=== PATIENT | female | born 1940 | race Caucasian/White ===

== ENCOUNTER → 2017-06-21 | Outpatient (CLI) | payer OTHER ==
[~2017-06-21] MED LIST: AMLODIPINE BESY10 MG PO; CELEXA10 MG PO; LISINOPRIL20 MG PO; MELOXICAM7.5 MG PO; MICROZIDE12.5 MG PO; PRAVACHOL20 MG PO; PREDNISONE 10 M10 MG PO; TRAMADOL 50 MG50 MG PO; XANAX 0.5 MG0.5 MG PO
== END ==
LOC: RAD 12:31
DX: R05 Cough (principal); M47.896 Other spondylosis, lumbar region; M54.89 Other dorsalgia

== ENCOUNTER 2017-07-22 14:50 | Inpatient (IN) | payer OTHER ==
[~2017-07-22] VITALS: Ht 152.4 cm; Wt 50.3 kg
--- NOTE | ~2017-07-22 | HC ---
[facility] [place] [address] CONSULTATION Name: KAVON ANTHONY Room #: 441-P ADM IN M.R.#: [id number] Admission: 07/22/17 Attend Phys: Nate Rodriguez MD Discharge: Date of : 38 Report #: [id number] THIS REPORT FOR: //name// CC: Nate Rodriguez DATE OF SERVICE: 07/29/2017 INFECTIOUS DISEASE CONSULTATION ATTENDING PHYSICIAN: Dr. Rodriguez. REASON FOR CONSULTATION: Fever. HISTORY OF PRESENT ILLNESS: The patient is a 76-year-old white woman admitted with abdominal pain, diagnosed to have gastric ulcerations secondary to nonsteroidal anti-inflammatory drugs. The patient has intermittent fevers. She has been on treatment with Cipro 250 b.i.d. for possible UTI. Despite this, she continues to run low grade fevers. All in all, she is feeling better compared to admission time, but she is bringing to my attention the fact that she is having loose stools 3-4 times daily, some abdominal discomfort, anorexia and unable to eat. PAST MEDICAL HISTORY: Cholecystectomy. Back surgery. Recent gastrointestinal bleeding secondary to peptic ulcer disease, chronic kidney disease. Previous kyphoplasty. Hiatal hernia. Schatzki's ring. DRUG ALLERGIES: CODEINE. MEDICATIONS: The patient is on treatment with Cipro 250 p.o. b.i.d., acetaminophen p.r.n., pantoprazole 40 mg p.o. daily, mirtazapine 50 mg at bedtime, alprazolam 0.25 mg q. 4 h p.r.n. SOCIAL HISTORY: See H and P. FAMILY HISTORY: See H and P. REVIEW OF SYSTEMS: As above and see H and P. PHYSICAL EXAMINATION: GENERAL: Chronically ill-appearing woman, not toxic looking. VITAL SIGNS: Temperature maximum 100.6 on July 28. Note is made, she was febrile with temperature 101.3 on July 26, 100.1 on July 23. Pulse 102, respirations 20, BP 138/56. HEENMT: Head, normocephalic, atraumatic. Pupils reactive. Mouth, missing teeth. Periodontal disease. Pharynx normal. NECK: Supple. No thyromegaly or lymphadenopathy. [facility] [address] [place] [address] CONSULTATION Name: KAVON ANTHONY Room #: 441-P ADM IN [facility].#: [id number] Admission: 07/22/17 Attend Phys: Nate Rodriguez MD Discharge: Date of : 38 Report #: [id number] LUNGS: Few basilar crackles. HEART: S1, S2. No gallop or murmur. BREASTS: Deferred. ABDOMEN: Soft, no masses or megaly, no abnormal tenderness. PELVIC AND RECTAL: Deferred. EXTREMITIES: No clubbing, cyanosis. NEUROLOGIC: Grossly within normal limits. LABORATORY DATA: Sodium 139, potassium 3.7, BUN 16, creatinine 2, glucose 104, albumin 1.7 g/dL. WBC 10,200, hemoglobin 9 g/dL. The patient was transfused with 1 unit of packed red cells, platelets 327,000. White blood cell count differential revealed 83% segmented neutrophils. Vitamin D level low at 13.2. Urinalysis revealed a microscopic hematuria as well as bacteriuria and squamous epithelial cells representing a contaminated sample. The urine culture revealed 30,000 colonies of "normal genital, urethral chase." Blood cultures negative. Stool negative for occult blood. RADIOLOGY EVALUATION: Chest x-ray reveal chronic lung disease changes -- COPD, blunting costophrenic angles, minimal pleural effusion, no pulmonary infiltrates. ASSESSMENT: 1. Fever, undetermined source. 2. Gastric ulcer ____ gastrointestinal bleeding. 3. Chronic kidney disease. 4. Periodontal disease. 5. Malnutrition. 6. Diarrhea, question antibiotic induced. SUGGESTIONS: Obtain CRP and sedimentation rate. Stool for Clostridium difficile toxin, discontinue Cipro. Carefully monitor laboratory parameters. Dr. Nate Rodriguez, thank you for requesting my suggestions. <ELECTRONICALLY SIGNED> By: Pancho Friedman MD 07/30/17 1010 1235 99 Pancho Friedman MD /nt
--- NOTE | ~2017-07-22 | HC ---
[facility] [place] [address] CONSULTATION Name: KAVON ANTHONY Room #: 441-P ADM IN M.R.#: [id number] Admission: 07/22/17 Attend Phys: Nate Rodriguez MD Discharge: Date of : 38 Report #: [id number] THIS REPORT FOR: //name// CC: Nate Rodriguez DATE OF SERVICE: 07/25/2017 HISTORY OF PRESENT ILLNESS: The patient is a 76-year-old female admitted with weight loss with her weight decreasing from 130 pounds down 107 pounds over the last 7 months or so. She was noted to have epigastric pain, acute renal failure and uncontrolled anxiety. She underwent an EGD, which showed evidence of multiple gastric ulcers. There is a history of long-term nonsteroidal usage. This was thought to contribute to her acute renal failure as well. She does have tremulousness and a tremor and was seen by Neurology and was thought to be most likely due to her systemic nutritional problems. Psychiatry saw her and she has been diagnosed with depression and has been placed on Remeron to help improve appetite. She has had anemia, hemoglobin down to 6.6 and has been closely monitored. Gastroenterology is involved. We are seeing her in rehabilitation medicine consultation. PAST MEDICAL HISTORY: Includes hypertension. There is a history of a remote stroke, depression, anxiety disorder, dyslipidemia and past history of chronic smoking. She is noted to have moderate to chronic anxiety and depression. She has been followed by the pain clinic for bilateral greater trochanteric bursa pain, myofascial pain, lumbar spondylosis. PAST SURGICAL HISTORY: Included lumbar laminectomy in 2007. MEDICATIONS: Please see the full medication listing. ALLERGIES: CODEINE. FAMILY HISTORY: Noncontributory. HABITS: See above. Past chronic smoker. SOCIAL HISTORY: Lives with son and czpgkxid-rc-yey house. There are 10-12 steps in. When she gets in, can stay on one level. She did not utilize adaptive aids or assistive devices before. Qdrosrkq-qs-xav works and son is out of town during the week, but home during weekends. The patient has been home by herself during the day. REVIEW OF SYSTEMS: Did not offer any current complaints of chest pain, shortness of breath or abdominal discomfort. She has some generalized malaise. She does have tremulousness that she complains of. No change as far as any extremity pain complaints. Obvious concern with her weight loss. [facility] [address] [place] [address] CONSULTATION Name: KAVON ANTHONY Room #: 441-P [facility] IN .R.#: [id number] Admission: 07/22/17 Attend Phys: Nate Rodriguez MD Discharge: Date of : 38 Report #: [id number] PHYSICAL EXAMINATION: GENERAL: A 76-year-old thin white female in no obvious distress. VITAL SIGNS: Last recorded temperature 100.7, pulse 98, respirations 18, blood pressure 141/51. NEUROLOGIC: She is alert. She does follow basic 1 step commands. She does appear to be anxious with her situation and her home situation as well as finances. EOMs appeared to be full. Facies are symmetric. She does have tremulousness of both upper extremities. I cannot detect any focal cogwheeling of the wrist or the elbows. However, I have grade her strength at a 4-/5. In her lower extremities, no focal calf swelling. Strength is grade 4-/5. Tone appeared to be intact. Transfers are min assist, getting on and off the toilet for occupational therapy. Sit to stand was contact guard and she did ambulate 10 feet contact guard with a front-wheeled walker. ASSESSMENT: A 76-year-old white female with the following problems: 1. Medical complexity with generalized debilitation. 2. Multiple gastric ulcers with significant weight loss and anemia. 3. History of long-term nonsteroidal usage. 4. Acute renal failure. 5. Depression with noted uncontrolled anxiety. Psychiatry is involved. 6. Tremors thought to be secondary to systemic nutritional problems per Neurology. 7. History of chronic pain problems with pain management involvement. 8. Remote history of cerebrovascular accident. PLAN: The patient would be a candidate for a short acute in-hospital inpatient rehabilitation stay. She has multiple medical comorbidities is being monitored regarding diet with her ulcers her significant depression, renal insufficiency, anemia, tremors/tremulousness, short acute in-hospital inpatient rehabilitation stay of approximately 5-7 days could be helpful for her to further improve her functional independence and strength, nutritional status confidence to hopefully get back to the point where she can return back home. She did not feel that her daughter would be able to take time off work to be with her, so she will need to be reasonably independent. Being on the acute inpatient rehab murray, unable for multiple senior telecommunications consultant physicians to continue to follow with her multiple medical comorbidities to try to maximize her overall medical and functional status. She premorbidly had been ambulatory without gait aids and is currently needing assistance for basic functional mobility and ADLs even with the walker. Insurance precertification issues are to be checked into. We will be glad to follow along with you. Prior level of function is well delineated above. <ELECTRONICALLY SIGNED> By: Glenn Knox MD 07/26/17 1108 1130 1244 Glenn Knox MD /AILEEN
--- NOTE | ~2017-07-22 | P ---
[facility] [place] [address] PROCEDURE REPORT Name: KAVON ANTHONY Room #: 441-P ADM IN M.R.#: [id number] Admission: 07/22/17 Attend Phys: Nate Rodriguez MD Discharge: Date of : 38 Report #: [id number] THIS REPORT FOR: //name// CC: Nate Rodriguez MD BRIEF HISTORY: The patient is a 76-year-old woman who was admitted with multiple problems including weight loss, dyspepsia and dysphagia for pills and possibly some solids. She also has lost weight. In addition, she had been using nonsteroidals on a regular basis. PREOPERATIVE DIAGNOSES: Abdominal pain, weight loss and use of nonsteroidals. POSTOPERATIVE DIAGNOSES: 1. Multiple small antral benign appearing gastric ulcers. 2. Erosive changes, antrum of the stomach, likely secondary to nonsteroidals. 3. Bulbar duodenitis with thickening of duodenal folds. 4. Small hiatus hernia. 5. Mild Schatzki ring. MEDICATIONS: Deep sedation with propofol per anesthesia. SPECIMENS: 1. Biopsies of duodenum to evaluate thickened folds and to rule out celiac disease. 2. Biopsies of gastritis and antral ulcers. ESTIMATED BLOOD LOSS: 3 mL. PROCEDURE: EGD with biopsy and Riley dilation. FINDINGS: Prior to propofol sedation, procedure of upper endoscopy was discussed with the patient as well as potential risks, benefits, and complications. She indicates she understands and desires to proceed. With the patient left lateral decubitus position, the [employer] video endoscope was inserted in the cervical esophagus under direct vision without difficulty. Examination of this organ through its entire length revealed normal esophageal mucosa down to the squamocolumnar junction. At squamocolumnar junction, a mild Schatzki ring was seen. In addition, a small 2 cm sliding type hiatus hernia was seen. The scope was advanced into the stomach, which was examined on end view as well as retroflexed views. There was a pattern of gastritis with multiple erosions. At least 2 small ulcers were seen, the largest the crater was about 4-5 mm and had a clean white base. These may be result of nonsteroidals. Multiple biopsies were obtained. Upon retroflexion, the proximal stomach was unremarkable except for small hiatus hernia. The pylorus, duodenal bulb, and postbulbar sweep were inspected. No ulcers were seen, but in [address] [place] [address] PROCEDURE REPORT Name: RAJKAVON LATRICE Room #: 441-P [facility] IN .R.#: [id number] Admission: 07/22/17 Attend Phys: Nate Rodriguez MD Discharge: Date of : 38 Report #: [id number] the distal bulb, the folds were thickened. Multiple biopsies were obtained of the second portion of duodenum as well as the duodenal bulb to evaluate for celiac disease as well as fold thickening. No other lesions were seen. At that point, the scope was slowly withdrawn and careful circumferential views confirmed the above findings and the patient tolerated the procedure well. DISPOSITION: She has multiple ulcers noted above, which may be a factor with regards to her GI symptoms. We would continue PPI. We will follow up on biopsies obtained today and make further recommendations as needed. <ELECTRONICALLY SIGNED> By: Israel Horton MD 07/23/172015 1252 1806 Israel Horton MD /nt
--- NOTE | ~2017-07-22 | HC ---
[facility] [place] [address] CONSULTATION Name: KAVON ANTHONY Room #: 441-P ADM IN M.R.#: [id number] Admission: 07/22/17 Attend Phys: Nate Rodriguez MD Discharge: Date of : 38 Report #: [id number] THIS REPORT FOR: //name// CC: Nate Rodriguez DATE OF SERVICE: 07/24/2017 HISTORY OF PRESENT ILLNESS: This is a 76-year-old female patient who is a very poor historian. She does not have a very good speech. She thinks this is going on for several days, but cannot tell me the exact duration. The neurological consultation is being requested for tremor. History is not very clear in that regard either, but she said it is of recent onset. She is distressed by tremor and she thinks it is interfering with her daily activity and it is moderately severe. She does not know what makes it better or worse. She has a significant GI problem. REVIEW OF SYSTEMS: Indicate that she has been admitted with numerous problems, which include renal failure, GI problems, taking too much anti-inflammatories, stopping her antidepressants. She does have a trouble with anxiety and depression in the past. She said she had a stroke in the past, but cannot tell me much about it after giving that history. I carried out the 14-point review of systems, the best I could, and this is all I can get. PAST MEDICAL HISTORY: Negative for any Parkinson disease. FAMILY HISTORY: Negative for any Parkinson disease. SOCIAL HISTORY: She has a history of smoking. PHYSICAL EXAMINATION: NEUROLOGIC: Indicates her speech is very difficult to understand. It is very soft. When I asked her what month it is, she is able to tell me, but she cannot tell me what date it is. Her memory and fund of knowledge looks pretty poor. Cranial nerve examination 2-12 looks unremarkable. She moves all 4 extremities and her position sense is intact. She does not cooperate with strength checking. She has no meningeal sign. I could not look at the patient's fundus. GENERAL: She is a thinly built individual whose hearing and visual looks adequate. VASCULAR: Pulses are difficult to feel, but she has no edema, cyanosis or jaundice. PULMONARY: She does not have much respiratory difficulty or rhonchi on either side. HEART: Appears mostly unremarkable. VITAL SIGNS: Blood pressure is 131/49, respirations 20, pulse is 95, temperature is 100.1. [facility] [address] [place] [address] CONSULTATION Name: KAVON ANTHONY Room #: 441-P [facility] IN [facility]#: [id number] Admission: 07/22/17 Attend Phys: Nate Rodriguez MD Discharge: Date of : 38 Report #: [id number] LABORATORY DATA: Indicates a normal white count, but hemoglobin is only 6.6. IMPRESSION: This patient's symptoms are most likely secondary to systemic nutritional problems. Her magnesium is low at 1.2 and she has a creatinine of 2.2 and hemoglobin of only 6.6. She may have some underlying tendency to have essential tremor. RECOMMENDATIONS: 1. TSH. 2. We will suggest correcting the metabolic disturbances. 3. I started the patient on thiamine because of nutritional deficiencies. 4. We will get a CT of the head. 5. Her depression and anxiety also may be aggravating her symptoms. We will reevaluate the patient and if her speech problem continues, you might consider ENT consult because there may be focal pathology. Thank you very much for this referral. <ELECTRONICALLY SIGNED> By: Franky Mackenzie MD 07/29/17 1107 1158 2340 Franky Mackenzie MD /nt
--- NOTE | ~2017-07-22 | S ---
[facility] [place] [address] SURGICAL PATH RPT PROCEDURE Name: KAVON JORDAN Room #: 441-P ADM IN M.R.#: [id number] Admission: 07/22/17 Date of : 38 Discharge: Report #: [id number] Path Case #: [id number] PATHOLOGY REPORT COLLECTION DATE: 07/23/2017 RECEIVED DATE: 07/23/2017 SUBMITTING PHYS: Dr. Israel Horton OTHER PHYS: Dr. Nate Rodriguez SPECIMEN(S) RECEIVED: A.Duodenal bx R/O celiac, hx NSAIDs use B.Gastric ulcer and gastritis bx * * * * * * * * * * * * FINAL DIAGNOSIS: A. "Duodenum BX R/O celiac, Hx NSAID's use", biopsy: - Small bowel/duodenal mucosa with reactive changes including patchy gastric metaplasia; no dysplasia seen and no evidence of celiac sprue. B. "Gastric ulcer and gastritis BX", biopsy: - Gastric mucosa with marked reactive and regenerative changes including foveolar hyperplasia, lamina propria edema and fibrosis, and mild predominantly chronic inflammation. (See comment) (CLW:lauren; 07/24/2017) COMMENT: Within specimen B, properly controlled immunohistochemical stains are performed. Block B1 H. pylori - Negative for organisms AE1/AE3 Reactive within the surface epithelium only. (CLW:lauren; 07/24/2017) PATHOLOGIST: Thea Goldstein M.D. REPORT ELECTRONICALLY SIGNED BY: Robyn Chavez M.D. for Thea Goldstein M.D. DATE/TIME: 07/25/2017 10:12 * * * * * * * * * * * * GROSS PATHOLOGY: A. Received in formalin labeled "Kavon Jordan, duodenal BX," are 5 segments of robles soft tissue measuring 1.6 x 1.1 x 0.3 cm in aggregate dimensions and ranging from 0.3 to 0.4 cm in maximum dimension. The specimen is submitted entirely in cassette A1. B. Received in formalin labeled "Kavon Jordan, BX gastric ulcer and gastritis," are 3 segments of robles soft tissue measuring 1.1 x 0.3 x 0.4 cm in aggregate dimensions and ranging from 0.4 to 0.5 [address] [address] SURGICAL PATH RPT PROCEDURE Name: KAVON JORDAN Room #: 441-P [facility] IN .R.#: [id number] Admission: 07/22/17 Date of : 38 Discharge: Report #: [id number] Path Case #: [id number] maximum dimension. The specimen is submitted entirely in cassette B1. (TSD; 07/23/2017) CLINICAL HISTORY: Pre-OP DX: Abdominal pain, weight loss, NSAID use Hx Post-OP DX: Gastric ulcers, gastritis, hiatal hernia, Schatzki's ring INITIAL CPT CODE(S): A; 73291 B; 28354, 74635, 41819 Professional services performed by [facility] at [address] , [place] [address] Technical services performed by [facility] at [address] [place] [address], [address], [place] [address]. [facility] [address] [place] [address] PHONE: [phone] DIRECTOR: Peng Steen M.D. * * * END OF REPORT * * *
--- NOTE | ~2017-07-22 | H ---
[facility] [place] [address] HISTORY AND PHYSICAL Name: KAVON ANTHONY Room #: 441-P ADM IN M.R.#: [id number] Admission: 07/22/17 Attend Phys: Nate Rodriguez MD Discharge: Date of : 38 Report #: [id number] THIS REPORT FOR: //name// CC: Nate Rodriguez DATE OF SERVICE: 07/22/2017 CHIEF COMPLAINT: Progressive weakness, abdominal pain and weight loss. HISTORY OF PRESENT ILLNESS: The patient has for a long time been unable to afford a place of her own in which to live. For many years, she has stayed with friends. 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 Prior to that, she weighed 130 pounds in 11/2016, 125 pounds in 03/2017, 118 pounds at an office appointment on 06/18/2017, 114 pounds on 07/11/2017 and 107 pounds today. She stopped smoking at the time she moved in to her son and rngcbjrz-hq-fru's home. It was quite a struggle for her, but currently she does not even desire a cigarette. Both her son and amkyvrzt-st-tgr smoke. She is upset that her aloffkth-mx-xtd does not care nearly as much as she does about keeping a clean house. Her son is gone during the week and returns home on weekends. Her back pain became worse and her legs hurt. 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 She has been taking more ibuprofen because of these pains. She developed epigastric pain along with a sensation of feeling hungry, but then not being able to tolerate the smell or taste of food. She stopped taking her anti-depressant, citalopram. She returned to the office and was prescribed pantoprazole and urged to stop all NSAID pain medications. Arterial Dopplers of both legs returned normal and lumbosacral spine films suggested degenerative disk disease with possible spinal stenosis at L2. Over the s, her abdominal pain persisted despite pantoprazole and her weight loss continued. She was brought to the office today by her son because of weakness that developed over the weekend. She denies past medical history of peptic ulcer disease or stomach bleeding or severe ulcers. She has dzkjtfqz-vo-dajuivg anxiety and depression. She has been followed by Dr. Blayne Lynne in the pain clinic for bilateral greater intertrochanteric bursa pain, myofascial pain and lumbosacral spondylosis without radiculopathy. She had a lumbar laminectomy in 2007. She has had hypertension and a history of a stroke, depression, anxiety disorder, dyslipidemia and just recently, stopped smoking after many years. CURRENT MEDICATIONS: Consisted of pantoprazole 40 mg one in the morning started 2 weeks ago, hydrochlorothiazide 12.5 mg once daily and lisinopril 20 mg [address] [address] HISTORY AND PHYSICAL Name: KAVON ANTHONY Room #: 441-P [facility] IN [facility]#: [id number] Admission: 07/22/17 Attend Phys: Nate P. Sharp, MD Discharge: Date of : 38 Report #: [id number] daily. She has been taking vitamin D 5000 units daily, alprazolam 0.25 mg 1 tablet at bedtime for sleep and Ventolin HFA inhaler on an as-needed basis. She was recently switched from paroxetine because of nausea to citalopram 10 mg daily, which she has not taken for several months. Tramadol makes her stomach hurt and does not help with her back pain, so she stopped using it. ALLERGIES: CODEINE. REVIEW OF SYSTEMS: Negative, except for the epigastric abdominal pain and a generalized weakness. FAMILY HISTORY: Noncontributory. PHYSICAL EXAMINATION: HEENT: Normal. LUNGS: Clear with 1-2 scattered rhonchi. CARDIOVASCULAR: S1 and S2 are normal and regular. ABDOMEN: Soft and nontender, without hepatosplenomegaly or masses. EXTREMITIES: There is no pedal edema present. NEUROLOGICAL EXAMINATION: Shows no focal neurologic deficits. LABORATORY DATA: Her creatinine is elevated at 2.6, compared to a baseline of 1.98 in November before her weight loss started. Her potassium is 3.2. Her albumin is 2.2. Her hemoglobin is 7.8, compared to an March hemoglobin of 13.1. Her MCV is 84.7, with the previous MCV of 89.1. Urinalysis shows 2+ leukocytes with moderate squamous epithelial cells, moderate white blood cells and moderate bacteria. ASSESSMENT: 1. Progressive epigastric pain and weight loss, combined with acute renal failure and an acute suspected blood loss anemia. 2. Uncontrolled anxiety and acute depression disorder. 3. Unfortunate living circumstance. 4. Acute renal failure. 5. Acute blood loss anemia. 6. Epigastric abdominal pain. PLAN: The patient is admitted and placed on intravenous fluids to restore her intravascular volume. She is to have an EGD in the morning to further delineate [address] [address] HISTORY AND PHYSICAL Name: KAVON ANTHONY Room #: 441-P [facility] IN M.R.#: [id number] Admission: 07/22/17 Attend Phys: Nate Rodriguez MD Discharge: Date of : 38 Report #: [id number] the presence or absence of peptic ulcer disease. Her potassium will be replaced. By: [id number] Nate Rodriguez MD /nt
[2017-07-22] MEDS ORDERED: PROTONIX40 M2 PO (15:44)
[2017-07-22 17:07] LABS: ALBUMIN 2.2 g/dL (3.4-5.0); CALCIUM 8.9 mg/dL (8.5-10.1); CREATININE 2.6 mg/dL (0.6-1.0); POTASSIUM 3.2 mmol/L (3.5-5.1); TOTAL BILIRUBIN 0.3 mg/dL (<0.1-1.0); TOTAL PROTEIN 7.1 g/dL (6.4-8.2)
[2017-07-22] MEDS ORDERED: VENTOLIN HFA 1818 GM INH (18:07)
[2017-07-22] MEDS ORDERED: LISINOPRIL20 MG PO (18:07)
[2017-07-22 18:36] LABS: ABSOLUTE NEUTROPHILS 6.2 thou/uL (1.4-8.2); BASOPHILS 0.8 % (0.0-2.0); EOSINOPHILS 2.3 % (0.0-3.0); HEMATOCRIT 23.6 % (37.0-47.0); HEMOGLOBIN 7.8 gm/dL (12.0-15.0); LYMPHOCYTES 14.4 % (24.0-44.0); MCV 84.7 fL (80.0-100.0); MONOCYTES 10.3 % (1.0-8.0); PLATELET COUNT 345 thou/uL (150-400); POLYS 72.2 % (36.0-66.0); RBC 2.78 mil/uL (4.20-5.00); RDW 13.1 % (10.5-14.5); WBC 8.5 thou/uL (4.0-11.0)
[2017-07-22 18:37] LABS: MANUAL DIFF NO
[2017-07-22 19:00] LABS: URINE BILIRUBIN NEGATIVE (Negative); URINE BLOOD NEGATIVE (Negative); URINE COLOR YELLOW; URINE GLUCOSE-RANDOM* NEGATIVE (Negative); URINE KETONES NEGATIVE (Negative); URINE PROTEIN (DIPSTICK) 1+ (Negative); URINE SPECIFIC GRAVITY 1.015 (1.003-1.035); URINE UROBILINOGEN 0.2 E.U./dl (0.2-1.0)
[2017-07-22 19:01] LABS: URINE LEUKOCYTES-REFLEX 2+ (Negative)
[2017-07-22 19:09] LABS: CASTS None Seen /LPF (None Seen); CRYSTALS None Seen /LPF (None Seen); SQUAMOUS 4-10 Moderate /LPF (0-3); URINE RBC None Seen /HPF (0-2)
[2017-07-22 20:00] VITALS: BP 124/47
[2017-07-23 04:00] VITALS: BP 107/50
[2017-07-23 06:51] LABS: HEMATOCRIT 23.5 % (37.0-47.0); HEMOGLOBIN 7.5 gm/dL (12.0-15.0); MCHC 31.9 g/dL (28.0-37.0); MCV 84.8 fL (80.0-100.0); RBC 2.77 mil/uL (4.20-5.00); RDW 13.5 % (10.5-14.5); WBC 9.3 thou/uL (4.0-11.0)
[2017-07-23 07:12] LABS: CALCIUM 8.8 mg/dL (8.5-10.1); CREATININE 2.4 mg/dL (0.6-1.0); MAGNESIUM 1.6 mg/dL (1.8-2.4); POTASSIUM 3.5 mmol/L (3.5-5.1)
[2017-07-23 07:13] LABS: % SATURATION 10 % (20-39); IRON 12 ug/dL (50-170); TIBC 117 ug/dL (250-450); UIBC 105 ug/dL
[2017-07-23 07:19] VITALS: BP 117/48
[2017-07-23 07:30] LABS: ABSOLUTE RETIC COUNT 0.0325 10^6/uL; OBSERVED RETIC COUNT 1.16 % (0.6-2.6)
[2017-07-23 15:40] VITALS: BP 133/41
[2017-07-23 20:04] VITALS: BP 127/49
[2017-07-24 05:06] VITALS: BP 131/44
[2017-07-24 06:11] LABS: HEMOGLOBIN 6.6 gm/dL (12.0-15.0); MCV 84.5 fL (80.0-100.0)
[2017-07-24 06:12] LABS: HEMATOCRIT 20.6 % (37.0-47.0); MCH 27.3 pg (26.0-34.0); MCHC 32.3 g/dL (28.0-37.0); RBC 2.43 mil/uL (4.20-5.00); RDW 13.1 % (10.5-14.5); WBC 9.1 thou/uL (4.0-11.0)
[2017-07-24 06:20] LABS: CALCIUM 8.3 mg/dL (8.5-10.1); CREATININE 2.2 mg/dL (0.6-1.0); MAGNESIUM 1.2 mg/dL (1.8-2.4); POTASSIUM 3.3 mmol/L (3.5-5.1)
[2017-07-24 07:10] VITALS: BP 131/49
[2017-07-24 10:10] LABS: URINE CREATININE-RANDOM* 63.8 mg/dL; URINE POTASSIUM-RANDOM* 22.1 mmol/L
[2017-07-24 10:34] LABS: URINE BILIRUBIN NEGATIVE (Negative); URINE BLOOD TRACE (Negative); URINE COLOR YELLOW; URINE GLUCOSE-RANDOM* NEGATIVE (Negative); URINE KETONES NEGATIVE (Negative); URINE NITRITE NEGATIVE (Negative); URINE PROTEIN (DIPSTICK) NEGATIVE (Negative); URINE UROBILINOGEN 0.2 E.U./dl (0.2-1.0)
[2017-07-24 16:20] VITALS: BP 128/45
[2017-07-24 19:30] VITALS: BP 143/84
[2017-07-24 21:10] LABS: HEMATOCRIT 22.3 % (37.0-47.0); HEMOGLOBIN 7.1 gm/dL (12.0-15.0)
[2017-07-25 03:26] VITALS: BP 141/51
[2017-07-25 06:47] LABS: ALBUMIN 1.5 g/dL (3.4-5.0); CALCIUM 8.1 mg/dL (8.5-10.1); PHOSPHORUS 2.7 mg/dL (2.5-4.9); POTASSIUM 3.3 mmol/L (3.5-5.1)
[2017-07-25 08:00] VITALS: BP 109/85
[2017-07-25 08:04] LABS: HEMOGLOBIN 7.8 gm/dL (12.0-15.0)
[2017-07-25 16:25] VITALS: BP 130/53
[2017-07-25 19:18] VITALS: BP 129/62
[2017-07-26 05:23] VITALS: BP 123/47
[2017-07-26 06:30] LABS: HEMOGLOBIN 6.9 gm/dL (12.0-15.0)
[2017-07-26 06:32] LABS: HEMATOCRIT 21.7 % (37.0-47.0); MCHC 31.8 g/dL (28.0-37.0); MCV 84.9 fL (80.0-100.0); PLATELET COUNT 332 thou/uL (150-400); RBC 2.56 mil/uL (4.20-5.00); RDW 13.8 % (10.5-14.5); WBC 10.8 thou/uL (4.0-11.0)
[2017-07-26 06:40] LABS: ALBUMIN 1.8 g/dL (3.4-5.0); CALCIUM 8.2 mg/dL (8.5-10.1); PHOSPHORUS 2.4 mg/dL (2.5-4.9); POTASSIUM 4.1 mmol/L (3.5-5.1)
[2017-07-26 07:01] LABS: MANUAL DIFF YES
[2017-07-26 07:28] VITALS: BP 134/48
[2017-07-26 08:20] LABS: TOTAL CELL COUNT 100
[2017-07-26 08:22] LABS: ANISOCYTOSIS 1+; HYPOCHROMASIA 1+; POLYCHROMASIA OCCASIONAL
[2017-07-26 14:00] VITALS: BP 156/66
[2017-07-26 14:30] VITALS: BP 146/54
[2017-07-26 17:02] VITALS: BP 149/63
[2017-07-26 19:20] VITALS: BP 128/52
[2017-07-27 03:31] VITALS: BP 133/58
[2017-07-27 05:35] LABS: HEMATOCRIT 28.2 % (37.0-47.0); MCH 28.1 pg (26.0-34.0); MCHC 32.1 g/dL (28.0-37.0); MCV 87.3 fL (80.0-100.0); PLATELET COUNT 324 thou/uL (150-400); RBC 3.23 mil/uL (4.20-5.00); RDW 13.8 % (10.5-14.5); WBC 12.4 thou/uL (4.0-11.0)
[2017-07-27 05:40] LABS: HEMOGLOBIN 9.1 gm/dL (12.0-15.0)
[2017-07-27 05:41] LABS: MANUAL DIFF YES
[2017-07-27 05:42] LABS: CALCIUM 8.4 mg/dL (8.5-10.1); CREATININE 2.1 mg/dL (0.6-1.0); POTASSIUM 4.1 mmol/L (3.5-5.1)
[2017-07-27 06:20] LABS: ABSOLUTE NEUTROPHILS 10.5 thou/uL (1.4-8.2); ATYPICAL LYMPHS 1 %; TOTAL CELL COUNT 100
[2017-07-27 06:23] LABS: ANISOCYTOSIS SLIGHT
[2017-07-27 07:46] VITALS: BP 143/79
[2017-07-27 16:05] VITALS: BP 145/53
[2017-07-27 19:16] VITALS: BP 137/55
[2017-07-28 03:58] VITALS: BP 147/66
[2017-07-28 05:24] LABS: HEMATOCRIT 27.9 % (37.0-47.0); HEMOGLOBIN 8.8 gm/dL (12.0-15.0); MCH 27.2 pg (26.0-34.0); MCHC 31.5 g/dL (28.0-37.0); MCV 86.3 fL (80.0-100.0); RBC 3.23 mil/uL (4.20-5.00); WBC 11.3 thou/uL (4.0-11.0)
[2017-07-28 05:29] LABS: CALCIUM 8.4 mg/dL (8.5-10.1); POTASSIUM 3.7 mmol/L (3.5-5.1)
[2017-07-28 08:11] VITALS: BP 154/81
[2017-07-28 16:15] VITALS: BP 146/65
[2017-07-28 19:41] VITALS: BP 145/80
[2017-07-29 03:59] VITALS: BP 148/75
[2017-07-29 08:00] VITALS: BP 138/56
[2017-07-29 08:00] LABS: HEMATOCRIT 28.2 % (37.0-47.0); MCH 27.7 pg (26.0-34.0); MCHC 31.8 g/dL (28.0-37.0); MCV 87.2 fL (80.0-100.0); PLATELET COUNT 327 thou/uL (150-400); RBC 3.24 mil/uL (4.20-5.00); RDW 14.2 % (10.5-14.5); WBC 10.2 thou/uL (4.0-11.0)
[2017-07-29 08:12] LABS: ALBUMIN 1.7 g/dL (3.4-5.0); CALCIUM 8.2 mg/dL (8.5-10.1); POTASSIUM 3.7 mmol/L (3.5-5.1)
[2017-07-29 08:17] LABS: MANUAL DIFF YES
[2017-07-29 08:46] LABS: ABSOLUTE NEUTROPHILS 8.5 thou/uL (1.4-8.2); TOTAL CELL COUNT 100
[2017-07-29 08:47] LABS: ATYPICAL LYMPHS 2 %
[2017-07-29 08:48] LABS: POLYCHROMASIA OCCASIONAL
[2017-07-29 08:49] LABS: ANISOCYTOSIS SLIGHT
[2017-07-29 16:00] VITALS: BP 147/56
[2017-07-29 20:17] VITALS: BP 142/57
[2017-07-30 04:52] VITALS: BP 109/69
[2017-07-30 06:32] LABS: ABSOLUTE NEUTROPHILS 9.3 thou/uL (1.4-8.2); BASOPHILS 0.5 % (0.0-2.0); HEMATOCRIT 30.5 % (37.0-47.0); HEMOGLOBIN 9.6 gm/dL (12.0-15.0); LYMPHOCYTES 10.5 % (24.0-44.0); MANUAL DIFF NO; MCH 27.5 pg (26.0-34.0); MCHC 31.5 g/dL (28.0-37.0); MCV 87.5 fL (80.0-100.0); PLATELET COUNT 372 thou/uL (150-400); RBC 3.48 mil/uL (4.20-5.00); RDW 14.2 % (10.5-14.5); WBC 11.6 thou/uL (4.0-11.0)
[2017-07-30 06:34] LABS: CALCIUM 8.4 mg/dL (8.5-10.1); CREATININE 2.1 mg/dL (0.6-1.0); MAGNESIUM 1.7 mg/dL (1.8-2.4); POTASSIUM 3.9 mmol/L (3.5-5.1)
[2017-07-30 07:00] VITALS: BP 153/73
[2017-07-30 10:49] VITALS: BP 153/73
[2017-07-30] MEDS ORDERED: REMERON15 MG PO (13:08)
[2017-07-30] MEDS ORDERED: VITAMIN D2000 UNIT PO (13:08)
[2017-07-30] MEDS ORDERED: PAIN & FEVER325 MG PO (13:08)
[2017-07-30] MEDS ORDERED: TRAMADOL 50 MG50 MG PO (13:08)
[2017-08-01 11:10] LABS: BLASTS 2 %
== END 2017-07-30 14:40 | disposition home health service (06) | DRG 377 ==
LOC: 4S 14:50 → ENTRNSPT 07-30 13:48 → EDTRNSPTSTS 07-30 14:06 → 4S 07-30 14:40
PROVIDERS: Hospitalist; Internal Medicine; Internal Medicine Gastroenterology
DX: K25.4 Chronic or unspecified gastric ulcer with hemorrhage (principal); E43 Unspecified severe protein-calorie malnutrition; N17.9 Acute kidney failure, unspecified; D62 Acute posthemorrhagic anemia; N39.0 Urinary tract infection, site not specified; I12.0 Hypertensive chronic kidney disease with stage 5 chronic kidney disease or end stage renal disease; N18.4 Chronic kidney disease, stage 4 (severe); K29.81 Duodenitis with bleeding; K29.71 Gastritis, unspecified, with bleeding; F41.9 Anxiety disorder, unspecified; F32.9 Major depressive disorder, single episode, unspecified; E78.5 Hyperlipidemia, unspecified; D64.9 Anemia, unspecified; R25.1 Tremor, unspecified; K05.6 Periodontal disease, unspecified; K22.2 Esophageal obstruction; K44.9 Diaphragmatic hernia without obstruction or gangrene; E86.0 Dehydration; K20.9 Esophagitis, unspecified; G89.29 Other chronic pain; M54.9 Dorsalgia, unspecified; R09.02 Hypoxemia; T39.395A Adverse effect of other nonsteroidal anti-inflammatory drugs [NSAID], initial encounter; Z82.49 Family history of ischemic heart disease and other diseases of the circulatory system; Z87.891 Personal history of nicotine dependence; Z86.73 Personal history of transient ischemic attack (TIA), and cerebral infarction without residual deficits; Z88.6 Allergy status to analgesic agent; Z90.49 Acquired absence of other specified parts of digestive tract; Z68.21 Body mass index [BMI] 21.0-21.9, adult; Z79.1 Long term (current) use of non-steroidal anti-inflammatories (NSAID)
CPT/HCPCS: 10102; 62110; 62900

== ENCOUNTER → 2017-09-13 | Outpatient (CLI) | payer OTHER ==
[~2017-09-13] MED LIST changes: +ALPRAZOLAM 0.0.25 M1 PO; +CLONAZEPAM 0.50.5 M1 PO; +DILTIAZEM 24HR180 M1 PO; +DUONEB 2.5-0.5 M3 ML INH; +GABAPENTIN 100100 MG PO; +LASIX 40 MG TAB40 M1 PO; +PAIN & FEVER325 MG PO; +PREDNISONE 5 MG5 M1 PO; +PROTONIX40 M2 PO; +REMERON15 MG PO; +VENTOLIN HFA 1818 GM INH; +VITAMIN D2000 UNIT PO
== END ==
LOC: ULTRA 14:52
DX: R60.0 Localized edema (principal); M79.604 Pain in right leg; M79.89 Other specified soft tissue disorders

== ENCOUNTER 2017-11-16 14:05 | Inpatient (IN) | payer OTHER ==
[2017-11-16] VITALS (8 sets, daily range): BP systolic 123–156; BP diastolic 58–116
[~2017-11-16] VITALS: Ht 149.9 cm; Wt 55.6 kg
--- NOTE | ~2017-11-16 | HC ---
[facility] [place] [address] CONSULTATION Name: KAVON ANTHONY Room #: 351-P ADM IN M.R.#: [id number] Admission: 11/16/17 Attend Phys: Nate Rodriguez MD Discharge: Date of : 38 Report #: [id number] THIS REPORT FOR: //name// CC: Nate Rodriguez DATE OF SERVICE: 11/17/2017 INFECTIOUS DISEASE CONSULTATION DATE OF ADMISSION: 11/16/2017 ATTENDING PHYSICIAN: Dr. Nate Rodriguez REASON FOR EVALUATION: Positive blood culture. HISTORY OF PRESENT ILLNESS: Chart reviewed, patient examined. This is a 76-year-old female with known COPD, who was admitted through the Emergency Room with complaints of dyspnea, apparently has been somewhat evident to family members over the course of the last couple of weeks and slowly worsened over recent days. It is not clear that she had any associated fever. She does describe a dry cough as well as part of the initial evaluation, blood cultures were collected, now 1 out of 2 with growth of gram-positive cocci in clusters. She does have pretty thin skin, ____ overt wounds she is aware of, not certainly ____ been ill at home. Really no significant exposure history. No recent travel, animal exposure. She was initiated on therapy with azithromycin, piperacillin and tazobactam. ALLERGIES: Listed to CODEINE. CURRENT MEDICATIONS: Include pantoprazole, ondansetron, methylprednisolone, Zosyn and azithromycin. PAST MEDICAL HISTORY: As above noted COPD, vasculopathy with previous stroke, chronic weakness of lower extremities, reflux, chronic renal insufficiency, iron deficiency anemia, ulcerative peptic, gastric ulcer disease, hiatal hernia, anxiety and depression. SOCIAL HISTORY: Former smoker, occasional ethanol. FAMILY HISTORY: Noncontributory. REVIEW OF SYSTEMS: As above. Denies significant gastrointestinal-related complaints. Has anorexia and with associated weight loss. PHYSICAL EXAMINATION: GENERAL: She is alert, cooperative. She is quite tremulous, which she has [facility] [address] [place] [address] CONSULTATION Name: KAVON ANTHONY Room #: 351-P [facility] IN [facility]#: [id number] Admission: 11/16/17 Attend Phys: Nate Rodriguez MD Discharge: Date of : 38 Report #: [id number] attributed to corticosteroids, particularly the right upper extremity, which is quite prominent resting tremor. She is chronically ill appearing, undernourished. VITAL SIGNS: Temperature 98.3, pulse 111, respirations 21, blood pressure 116/53. SKIN: Warm, dry. HEENT: Nasal cannula oxygen in place. NECK: Supple. LUNGS: Diminished, overall scattered, coarse breath sounds. HEART: Regular, tachycardic. I do not appreciate a murmur. ABDOMEN: Soft. There are no overt peritoneal signs. GENITOURINARY: Deferred. RECTAL: Deferred. LABORATORY DATA: One out of 2 blood cultures collected on are positive for gram-positive cocci in clusters. Chest x-ray: Diffuse interstitial prominence. No new or increasing consolidating pulmonary infiltrates. ABGs: pH 7.448, pCO2 of 21, pO2 of 76.6 on 4 liters. Electrolytes: Sodium 143, potassium 4.4, chloride 107, bicarbonate is 24, BUN and creatinine 28 and 2.5. LFTs unremarkable. Albumin of 3.3, total protein 7.1. Estimated GFR of 19. CBC: White count 6.5, H and H 11.8, 35.8, platelets of 197. Sed rate of 18. D-dimer elevated at 1.25. ProBNP elevated at 5961. Did have a bit of an eosinophilia of 8%. Total white count of 9200. ASSESSMENT: Gram-positive cocci isolated in a single blood culture, certainly can exclude this as a false positive at this stage, will continue antimicrobial therapy, single dose of vancomycin should ____ 24 hours. We will adjust down the Zosyn as well. Check an IgE level. <ELECTRONICALLY SIGNED> By: Adrian Cordoba MD 11/18/17 1051 1505 1607 Adrian Cordoba MD /nt
--- NOTE | ~2017-11-16 | HC ---
[facility] [place] [address] CONSULTATION Name: KAVON ANTHONY Room #: 218-P ADM IN M.R.#: [id number] Admission: 11/16/17 Attend Phys: Nate Rodriguez MD Discharge: Date of : 38 Report #: [id number] THIS REPORT FOR: //name// CC: Nate Rodriguez REASON FOR CONSULTATION: Chronic kidney disease. HISTORY OF PRESENT ILLNESS: A 76-year-old with past medical history of COPD. She presented with increasing shortness of breath. This was associated with dry cough. She was initially admitted to the ICU. Creatinine on presentation was 1.9. This had worsened over the last few days with a creatinine up to 2.8. However, looking at her previous values, it does look like that she has a baseline chronic kidney disease with a creatinine varying anywhere from 2-2.6 as of June 2017. I am being asked to evaluate her kidney issues. It does look like that she has significant left kidney atrophy and parenchymal scarring. This was based on previous ultrasounds done back in 2017. PAST MEDICAL HISTORY: 1. COPD. 2. Chronic back pain. 3. Chronic kidney disease. 4. Atrophic left kidney. 5. Gastrointestinal bleed. 6. Peptic ulcer disease. MEDICATIONS: 1. Acetaminophen. 2. Vitamin D. 3. Lisinopril. 4. Gabapentin. 5. Alprazolam. SOCIAL HISTORY: She denies drug or alcohol abuse. REVIEW OF SYSTEMS: GENERAL: No fever or chills. CARDIOVASCULAR: As per the history of present illness. PULMONARY: As per the history of present illness. GENITOURINARY: No frequency, no urgency. GASTROINTESTINAL: No nausea or vomiting. MUSCULOSKELETAL: Chronic back pain and lower extremity pain. No rash or ulceration. NEUROLOGIC: No weakness. PHYSICAL EXAMINATION: GENERAL: She is alert, oriented, in no apparent distress. She is anxious. VITAL SIGNS: Blood pressure is 114/54. [facility] [address] [place] [address] CONSULTATION Name: KAVON ANTHONY Room #: 218-P [facility] IN [facility]#: [id number] Admission: 11/16/17 Attend Phys: Nate Rodriguez MD Discharge: Date of : 38 Report #: [id number] HEAD AND NECK: No jugular venous distention, no bruit, no thyromegaly. CHEST: Decreased air entry bilaterally with wheezes. CARDIOVASCULAR: Regular with no rub. ABDOMEN: Soft, nontender with no hepatosplenomegaly. EXTREMITIES: Lower extremities, no edema. LABORATORY VALUES: Reviewed. Creatinine is up to 2.8. ASSESSMENT, IMPRESSION, AND PLAN: 1. Acute kidney injury. 2. Chronic kidney disease. 3. Chronic obstructive pulmonary disease. 4. Her acute kidney injury and the worsening of her creatinine is expected because of the abrupt onset and decrease in the blood pressure from the 200s values to the normal values of 114 as of today. She also had very significant low blood pressure reading down to 77/67 yesterday. 5. As for now, avoid nephrotoxins. 6. Avoid aggressive blood pressure reductions. 7. Avoid diuretics. 8. Follow vanc level. Redose the vancomycin only if the level is less than 20. 9. Continue the management of her chronic obstructive pulmonary disease. <ELECTRONICALLY SIGNED> By: Kris Luna MD 11/25/17 0636 0811 0927 Kris Luna MD /nt
--- NOTE | ~2017-11-16 | EKG ---
[place] [address] [facility] [place] [address] ELECTROCARDIOGRAM REPORT Name: KAVON ANTHONY Room #: 237-P ADM IN M.R.#: [id number] Admission: 11/16/17 Attend Phys: Nate Rodriguez MD Discharge: Date of : 38 Report #: [id number] THIS REPORT FOR: //name// [facility] Test Date: 2017-11-20 Test Time: 12:19:44 Pat Name: KAVON ANTHONY Department: Room: [facility] Gender: F Sales Representative Metals: Noe RYAN : 1940 Requested By: Nate Rodriguez Order Number: [id number] MD: Wyatt Ramírez Measurements Intervals [place] Rate: 97 P: 73 IA: 115 QRS: 56 QRSD: 122 T: QT: 381 QTc: 484 Interpretive Statements Sinus rhythm Borderline short IA interval Left bundle branch block Baseline wander in lead(s) V5 Compared to ECG 11/16/2017 15:01:04 No significant changes Electronically Signed On 11-21-2017 7:24:27 CDT by Wyatt Ramírez [email or web address] <ELECTRONICALLY SIGNED> By: Wyatt Ramírez MD, [facility] 11/21/17 0724 1219 1219 Wyatt Ramírez MD, [facility] /EPI
--- NOTE | ~2017-11-16 | H ---
[facility] [place] [address] HISTORY AND PHYSICAL Name: KAVON ANTHONY Room #: 237-P ADM IN M.R.#: [id number] Admission: 11/16/17 Attend Phys: Nate Rodriguez MD Discharge: Date of : 38 Report #: [id number] THIS REPORT FOR: //name// CC: Nate Rodriguez DATE OF SERVICE: 11/16/2017 CHIEF COMPLAINT: Sudden acute and severe shortness of breath, high blood pressure. HISTORY OF PRESENT ILLNESS: The patient was stressed. 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 She spent some period of time living at a friend's house in the past, and more recently due to unfortunate circumstances had to move in with her son and his . It is quite stressful to return to the home where she had stayed as a guest to the close friend of hers for an extended period of time before having to leave. She reported more shortness of breath and her son told her that she needed to go to the Emergency Room and they did bring her to the Emergency Room. In the Emergency Room, it was noted that she had been complaining of shortness of breath for the previous 2 weeks off and on, but this episode was worse than before. They noted wheezing. They noted extreme anxiety. They noted that the albuterol helped with some relief. Her heart rate was 140. She was found to have flash pulmonary edema during high blood pressures. PAST MEDICAL HISTORY: Most significant for an admission from 07/22/2017 to 07/30/2017 for weight loss and failure to thrive and was found to be due to multiple gastric ulcers caused by NSAID use. She had severe malnutrition. Relatively severe chronic anxiety and depression and appeared to have cognitive dysfunction as well. History of previous stroke with mild right hemiparesis and occasional mild right-sided neuritic pain. History of chronic kidney disease with acute renal failure/acute kidney injury, and left renal atrophy. Osteoporosis, L2 osteoplasty, COPD. Cigarette smoker. Hypertension. Lumbar laminectomy in 2007. CODEINE ALLERGY. MEDICATIONS: She stopped taking mirtazapine 15 mg at bedtime. She does take vitamin D. She has not needed tramadol. She does take albuterol inhaler, lisinopril 20 mg daily, pantoprazole 40 mg daily, alprazolam 0.5 mg twice daily as needed for anxiety. She is not taking gabapentin at bedtime. OBJECTIVE: GENERAL: Shows is a 76-year-old female who has a BiPAP mask on in the intensive care unit. She appears comfortable. HEENT: Unremarkable. LUNGS: Occasional wheezing is heard. She has rales one half way upper back and no wheezes. [address] [address] HISTORY AND PHYSICAL Name: KAVON ANTHONY Room #: 237-P [facility] IN [facility]#: [id number] Admission: 11/16/17 Attend Phys: Nate Rodriguez MD Discharge: Date of : 38 Report #: [id number] CARDIOVASCULAR: S1, S2 are normal. ABDOMEN: Soft and nontender. EXTREMITIES: There is no significant edema in her legs. IMAGING: Chest x-ray shows pulmonary edema. ASSESSMENT: 1. Acute hypoxemic respiratory failure. 2. "Flash" pulmonary edema. 3. Chronic obstructive pulmonary disease with acute exacerbation. 4. Hypertensive urgency with pulmonary edema -- blood pressure in the Emergency Room was markedly elevated with systolic of 200. 5. Other medical problems as mentioned above. PLAN: ____. By: 0120 0149 Nate Rodriguez MD /nt
--- NOTE | ~2017-11-16 | 2DMMODE ---
[facility] [address] [place] [address] 2 D/M-MODE ECHOCARDIOGRAM Name: KAVON ANTHONY Room #: 351-P ADM IN M.R.#: [id number] Admission: 11/16/17 Attend Phys: Nate Rodriguez, Discharge: Date of : 38 Date of Service: 11/18/17 0942 Report #: [id number] THIS REPORT FOR: //name// APPROVED REPORT Study performed: 11/18/2017 08:31:55 EXAM: Comprehensive 2D, Doppler, and color-flow Echocardiogram Patient Location: Echo lab Room #: 351 Status: routine BSA: 1.52 HR: 103 bpm BP: 114/54 mmHg Rhythm: Tachycardia Other Information Study Quality: Good Indications Pulmonary edema. 2D Dimensions RVDd: 29.53 mm LVEF(%): 49.09 (>50%) IVSd: 11.45 (7-11mm) LVOT Diam: 17.61 (18-24mm) LVDd: 40.04 mm PWd: 11.03 (7-11mm) Ascending Ao: 24.04 (22-36mm) LVDs: 30.25 (25-40mm) Aortic Root: 27.49 mm Gilbert's LVEF: 49.09 % Volumes Left Atrial Volume (Systole) Single Plane 4CH: 61.43 mL Single Plane 2CH: 63.63 mL LA ESV Index: 44.00 mL/m2 Aortic Valve AoV Peak Clifford.: 1.69 m/s AO Peak Gr.: 11.48 mmHg LVOT Max P.17 mmHg LVOT Max V: 1.14 m/s LEONORA Vmax: 1.63 cm2 Mitral Valve E/A Ratio: 0.9 MV Decel. Time: 141.42 ms [facility] [address] [place] [address] 2 D/M-MODE ECHOCARDIOGRAM Name: KAVON ANTHONY Room #: 351-P [facility] IN M.R.#: [id number] Admission: 11/16/17 Attend Phys: Nate Rodriguez, Discharge: Date of : 38 Date of Service: 11/18/17 0942 Report #: [id number] E Max Clifford.: 1.30 m/s MV A Clifford.: 1.51 m/s MV PHT: 41.01 ms IVRT: 55.36 ms Pulmonary Valve PV Peak Clifford.: 0.92 m/s PV Peak Gr.: 3.37 mmHg Pulmonary Vein P Vein S: 1.05 m/s P Vein D: 0.56 m/s P Vein S/D Ratio: 1.88 Tricuspid Valve TR Peak Clifford.: 2.92 m/s RAP Estimate: 10.00 mmHg TR Peak Gr.: 34.03 mmHg PA Pressure: 44.00 mmHg Left Ventricle The left ventricle is normal size. There is normal LV segmental wall motion. Mild basal septal hypertrophy is present. Left ventricular systolic function is lower limits of normal. LVEF is 50%. Mild diastolic dysfunction is present (impaired relaxation pattern). Right Ventricle The right ventricle is normal size. The right ventricular systolic function is normal. Atria Left atrium is moderately dilated. The right atrium size is normal. Aortic Valve The aortic valve is mildly sclerotic. Trace aortic regurgitation. There is no aortic valvular stenosis. Mitral Valve Mitral valve leaflets are mildly thickened. Mild to moderate mitral annular calcification. Moderate mitral regurgitation. Tricuspid Valve The tricuspid valve is normal in structure. Mild to moderate tricuspid regurgitation. Estimated PAP is 40-45mmHg. Pulmonic Valve [address] [address] 2 D/M-MODE ECHOCARDIOGRAM Name: RAJKAVON LATRICE Room #: 351-P [facility] IN .R.#: [id number] Admission: 11/16/17 Attend Phys: Nate Rodriguez, Discharge: Date of : 38 Date of Service: 11/18/17 0942 Report #: [id number] The pulmonary valve is normal in structure. Trace pulmonic regurgitation. Great Vessels The aortic root is normal in size. The ascending aorta is normal in size. IVC is borderline dilated and collapses <50% with inspiration. Pericardium There is no pericardial effusion. <Conclusion> Left ventricular systolic function is lower limits of normal. LVEF is 50%. Left atrium is moderately dilated. The aortic valve is mildly sclerotic. Trace aortic regurgitation, no stenosis. Mitral valve leaflets are mildly thickened. Mild to moderate mitral annular calcification. Moderate mitral regurgitation. Mild to moderate tricuspid regurgitation. Estimated pulmonary artery pressure 40-45mmHg. There is no pericardial effusion. <ELECTRONICALLY SIGNED> By: Wyatt Ramírez MD, FACC 11/18/1742 1 1 Wyatt Ramírez MD, FACC /INF
--- NOTE | ~2017-11-16 | HC ---
[facility] [place] [address] CONSULTATION Name: KAVON ANTHONY Room #: 237-P ADM IN M.R.#: [id number] Admission: 11/16/17 Attend Phys: aNte Rodriguez MD Discharge: Date of : 38 Report #: [id number] THIS REPORT FOR: //name// CC: Nate Rodriguez MD DATE OF SERVICE: 11/16/2017 PULMONARY CONSULTATION REFERRING PROVIDER: Nate Rodriguez MD REASON FOR CONSULTATION: Respiratory failure. CHIEF COMPLAINT: Shortness of breath. HISTORY OF PRESENT ILLNESS: Our group was asked to see this patient in consultation while hospitalized at [facility]. Case discussed with the patient and her family was at the bedside including son and jvostkit-sr-ohj as well as with Dr. Garnica in the Emergency Department. She is a pleasant 76-year-old woman with a past pulmonary history significant for tobacco abuse quitting a few years ago complicated by mild COPD for which she takes p.r.n. albuterol, stating she does not need very often; however, over the last few days, had increasing shortness of breath and nonproductive cough. No fevers, chills or sweats. Has had some left-sided chest pain, was at a friend's earlier today when the dyspnea got so severe, emergently came to the hospital where she was noted to be in respiratory distress, placed on noninvasive positive pressure ventilation with BiPAP. Her blood pressure was extremely high with a systolic of greater than 200. EKG at that time did show sinus tachycardia and left bundle-branch block. Chest x-ray revealed what appeared to be bilateral basilar infiltrates and perhaps some mild pleural effusions. She was given some diuresis, antihypertensives IV and placed on noninvasive positive pressure ventilation, appears more comfortable at this time and difficulty speaking in full sentences. Chest pain is now resolved. ALLERGIES: INCLUDE CODEINE. PAST MEDICAL HISTORY: 1. History of COPD of unclear severity, currently on p.r.n. albuterol only. 2. History of tobacco use, quitting several years ago. 3. History of peptic ulcer disease. 4. History of chronic back pain with prior back surgery and kyphoplasty. 5. Hiatal hernia. 6. History of chronic renal insufficiency. OUTPATIENT MEDICATIONS: Include Tylenol, albuterol p.r.n., vitamin D3, [facility] [address] [place] [address] CONSULTATION Name: KAVON ANTHONY LATRICE Room #: 237[facility] IN .R.#: [id number] Admission: 11/16/17 Attend Phys: Nate Rodriguez MD Discharge: Date of : 38 Report #: [id number] gabapentin, lisinopril, Remeron and Protonix. SOCIAL HISTORY: Currently lives with son and hydigccb-wj-zva for about the last 8-9 months. No alcohol consumption or tobacco use at this time. FAMILY HISTORY: Negative for any significant pulmonary disease. REVIEW OF SYSTEMS: CONSTITUTIONAL: Denies any fevers, chills or sweats. ENT: No upper respiratory congestion, rhinorrhea or epistaxis. CARDIOVASCULAR: Left-sided chest pain. GASTROINTESTINAL: No nausea, vomiting or abdominal pain. History of GI problems as described above. GENITOURINARY: No dysuria, no frequency or hematuria. INTEGUMENT: Denies any rash. MUSCULOSKELETAL: No new joint pains or swelling. There is some generalized weakness and chronic low back pain. PHYSICAL EXAMINATION: VITAL SIGNS: Afebrile, pulse 80s and regular, respiratory rate 20, blood pressure 166/77. GENERAL: This is a thin elderly woman having difficulty speaking in full sentences on BiPAP. ENT: Unassessed due to BiPAP in place. NECK: Supple. No lymphadenopathy. Jugular venous pressure not elevated. LUNGS: Basilar inspiratory crackles, no wheezes. CARDIOVASCULAR: Heart was regular. No murmurs appreciated. ABDOMEN: Soft, nontender, no masses, no hepatosplenomegaly. EXTREMITIES: Warm, 2+ pulses, no edema. LABORATORY DATA: White blood cell count 9000, hemoglobin 14, hematocrit 42, platelet count of 219. Of note, 8% eosinophils. Sodium 141, potassium 3.9, chloride 108, bicarbonate 24, BUN 18, creatinine 1.9, glucose 130, alkaline phosphatase , proBNP is 5961. Arterial blood gas on BiPAP 14/6, 30% revealed pH 7.39, pCO2 of 34, pO2 of 82, bicarbonate 20. IMPRESSION: 1. Acute hypoxemic respiratory failure, infiltrate suggested on chest x-ray, possibly pulmonary edema as well. 2. Elevated eosinophil count. 3. Severe hypertension. 4. History of peptic ulcer disease. 5. Eosinophilia. 6. Acute on chronic renal insufficiency. SUGGESTIONS: [address] [address] CONSULTATION Name: KAVON ANTHONY Room #: 237-P [facility] IN M.R.#: [id number] Admission: 11/16/17 Attend Phys: Nate Rodriguez MD Discharge: Date of : 38 Report #: [id number] 1. Continue noninvasive positive pressure ventilation. 2. Follow up arterial blood gas and chest x-ray in a.m. 3. Check D-dimer. 4. Lower extremity venous Doppler. 5. Echocardiogram. 6. Better antihypertensive control, systolic blood pressure 140-160. 7. Systemic steroids with taper. 8. Bronchodilators. 9. Zosyn for possible findings suggestive of aspiration pneumonia in the lower lobes. 10. Azithromycin. 11. Sputum and blood cultures. 12. The patient has an elevated ESR and CRP in July when rule out the possibility given the eosinophilia that she may have an underlying autoimmune process, repeat the labs. 13. Check D-dimer. 14. May need further evaluation for pulmonary embolism based on above. 15. We will continue to follow. Total critical care time 45 minutes, not including procedures, discussed with patient and family in the Emergency Department. <ELECTRONICALLY SIGNED> By: Farooq Whalen MD 11/21/17 1756 1631 32 Farooq Whalen MD /nt
--- NOTE | ~2017-11-16 | EKG ---
[place] [address] [email or web address] [address] ELECTROCARDIOGRAM REPORT Name: KAVON ANTHONY Room #: 245-P ADM IN M.R.#: [id number] Admission: 11/16/17 Attend Phys: Nate Rodriguez MD Discharge: Date of : 38 Report #: [id number] THIS REPORT FOR: //name// [facility] Test Date: 2017-11-16 Test Time: 15:01:04 Pat Name: KAVON ANTHONY Department: Room: [facility] Gender: F Cigarette Carton Sealer: Gretta HERZOG : 1940 Requested By: Du Miller Order Number: [id number] MD: Wyatt Ramírez Measurements Intervals [place] Rate: 96 P: 74 DC: 129 QRS: 29 QRSD: 121 T: 137 QT: 384 QTc: 486 Interpretive Statements Sinus rhythm Probable left atrial enlargement Left bundle branch block No previous ECG available for comparison Electronically Signed On 11-17-2017 14:03:54 CDT by Wyatt Ramírez [email or web address] <ELECTRONICALLY SIGNED> By: Wyatt Ramírez MD, [facility] 11/17/17 1403 1501 150 Wyatt Ramírez MD, FACC /EPI
--- NOTE | ~2017-11-16 | EKG ---
[place] [address] [facility] [place] [address] ELECTROCARDIOGRAM REPORT Name: KAVON ANTHONY Room #: 237-P ADM IN M.R.#: [id number] Admission: 11/16/17 Attend Phys: Nate Rodriguez MD Discharge: Date of : 38 Report #: [id number] THIS REPORT FOR: //name// [facility] Test Date: 2017-11-20 Test Time: 17:10:17 Pat Name: KAVON ANTHONY Department: Room: 237 Gender: F Global Marketing Specialist: Bobby JULIAN : 1940 Requested By: aFrooq Whalen Order Number: [id number] MD: Wyatt Ramírez Measurements Intervals [place] Rate: 131 P: 71 NC: 115 QRS: 39 QRSD: 121 T: 211 QT: 319 QTc: 471 Interpretive Statements Sinus tachycardia Probable left atrial enlargement Left bundle branch block Compared to ECG 11/16/2017 15:01:04 Heart rate has increased Electronically Signed On 11-21-2017 7:28:39 CDT by Wyatt Ramírez [email or web address] <ELECTRONICALLY SIGNED> By: Wyatt Ramírez MD, [facility] 11/21/17 0728 1710 09 Wyatt Ramírez MD, [facility] /EPI
--- NOTE | ~2017-11-16 | EKG ---
[place] [address] [facility] [place] [address] ELECTROCARDIOGRAM REPORT Name: KAVON ANTHONY Room #: 245-P ADM IN M.R.#: [id number] Admission: 11/16/17 Attend Phys: Nate Rodriguez MD Discharge: Date of : 36 Report #: [id number] THIS REPORT FOR: //name// [facility] ED Test Date: 2017-11-16 Test Time: 14:10:14 Pat Name: KAVON ANTHONY Department: Room: [facility] Gender: F Flat Lock Operator: Gretta HERZOG : 1940 Requested By: Du Miller Order Number: [id number] MD: Wyatt Ramírez Measurements Intervals [place] Rate: 135 P: 71 MA: 108 QRS: 49 QRSD: 118 T: 217 QT: 321 QTc: 482 Interpretive Statements Sinus tachycardia Left bundle branch block Baseline wander in lead(s) II,III,aVR,aVF No previous ECG available for comparison Electronically Signed On 11-17-2017 14:03:45 CDT by Wyatt Ramírez [email or web address] <ELECTRONICALLY SIGNED> By: Wyatt Ramírez MD, [facility] 11/17/17 1403 1410 1410 Wyatt Ramírez MD, [facility] /EPI
[~2017-11-16 14:05] MED LIST changes: -ALPRAZOLAM 0.0.25 M1 PO; -CLONAZEPAM 0.50.5 M1 PO; -DILTIAZEM 24HR180 M1 PO; -DUONEB 2.5-0.5 M3 ML INH; -GABAPENTIN 100100 MG PO; -LASIX 40 MG TAB40 M1 PO; -PREDNISONE 5 MG5 M1 PO
[2017-11-16 14:48] LABS: ABSOLUTE NEUTROPHILS 4.3 thou/uL (1.4-8.2); BASOPHILS 1.1 % (0.0-2.0); HEMATOCRIT 41.6 % (37.0-47.0); HEMOGLOBIN 13.6 gm/dL (12.0-15.0); LYMPHOCYTES 38.4 % (24.0-44.0); MCH 29.7 pg (26.0-34.0); MCHC 32.7 g/dL (28.0-37.0); MCV 90.6 fL (80.0-100.0); MONOCYTES 6.1 % (1.0-8.0); PLATELET COUNT 219 thou/uL (150-400); POLYS 46.4 % (36.0-66.0); RBC 4.59 mil/uL (4.20-5.00); RDW 13.4 % (10.5-14.5); WBC 9.2 thou/uL (4.0-11.0)
[2017-11-16 14:55] LABS: ANION GAP 9 mmol/L (7-16); BUN 18 mg/dL (7-18); CALCIUM 9.3 mg/dL (8.5-10.1); CHLORIDE 108 mmol/L (98-107); CO2 24 mmol/L (21-32); CREATININE 1.9 mg/dL (0.6-1.0); GLUCOSE 130 mg/dL (74-106); POTASSIUM 3.9 mmol/L (3.5-5.1); SODIUM 141 mmol/L (136-145)
[2017-11-16 15:03] LABS: ALBUMIN 3.9 g/dL (3.4-5.0); SGOT 15 U/L (15-37); SGPT 19 U/L (30-65); TOTAL BILIRUBIN 0.3 mg/dL (<0.1-1.0); TOTAL PROTEIN 8.3 g/dL (6.4-8.2); TROPONIN-I < 0.04 ng/mL (<0.06)
[2017-11-16 15:21] LABS: BE(vivo) -3.7 mmol/L (-2 to +3); HCO3 20.4 mmol/L (22.0-26.0); PCO2 34.2 mmHg (35.0-45.0); PO2 82.1 mmHg (80.0-100.0); pH 7.394 (7.360-7.450); sO2 96.1 % (92.0-98.0)
[2017-11-16] MEDS ORDERED: GABAPENTIN 100100 MG PO (15:49)
[2017-11-16 17:03] LABS: ALBUMIN 2.7 g/dL (3.4-5.0); CALCIUM 9.1 mg/dL (8.5-10.1); CREATININE 1.8 mg/dL (0.6-1.0); PHOSPHORUS 4.5 mg/dL (2.5-4.9)
[2017-11-17] VITALS (17 sets, daily range): BP systolic 77–123; BP diastolic 48–86
[2017-11-17 04:58] LABS: HEMATOCRIT 35.8 % (37.0-47.0); HEMOGLOBIN 11.8 gm/dL (12.0-15.0); MCH 29.6 pg (26.0-34.0); MCHC 32.9 g/dL (28.0-37.0); MCV 89.8 fL (80.0-100.0); RBC 3.99 mil/uL (4.20-5.00); RDW 12.9 % (10.5-14.5); WBC 6.5 thou/uL (4.0-11.0)
[2017-11-17 05:22] LABS: CALCIUM 9.3 mg/dL (8.5-10.1); CREATININE 2.5 mg/dL (0.6-1.0); POTASSIUM 4.4 mmol/L (3.5-5.1)
[2017-11-17 05:25] LABS: BE(vivo) -3.4 mmol/L (-2 to +3); HCO3 19.4 mmol/L (22.0-26.0); PCO2 28.7 mmHg (35.0-45.0); PO2 76.6 mmHg (80.0-100.0); pH 7.448 (7.360-7.450)
[2017-11-17 05:29] LABS: ALBUMIN 3.3 g/dL (3.4-5.0); MAGNESIUM 2.1 mg/dL (1.8-2.4); TOTAL BILIRUBIN 0.4 mg/dL (<0.1-1.0); TOTAL PROTEIN 7.1 g/dL (6.4-8.2)
[2017-11-17 16:09] LABS: URINE BILIRUBIN NEGATIVE (Negative); URINE BLOOD 3+ (Negative); URINE CLARITY HAZY; URINE COLOR YELLOW; URINE GLUCOSE-RANDOM* NEGATIVE (Negative); URINE KETONES TRACE (Negative); URINE LEUKOCYTES TRACE (Negative); URINE NITRITE NEGATIVE (Negative); URINE PROTEIN (DIPSTICK) 1+ (Negative); URINE SPECIFIC GRAVITY 1.025 (1.005-1.035); URINE UROBILINOGEN 0.2 E.U./dl (0.2-1.0)
[2017-11-17 16:12] LABS: BACTERIA 1-9 Few /HPF (None Seen); CASTS None Seen /LPF (None Seen); CRYSTALS None Seen /LPF (None Seen); SQUAMOUS 0-3 Few /LPF (0-3); URINE RBC >20 Many /HPF (0-2); URINE WBC 0-5 Rare /HPF (0-5)
[2017-11-17 16:18] LABS: URINE CREATININE-RANDOM* 129.9 mg/dL; URINE POTASSIUM-RANDOM* 67.4 mmol/L
[2017-11-18 04:05] VITALS: BP 116/58
[2017-11-18 05:45] LABS: ABSOLUTE NEUTROPHILS 13.6 thou/uL (1.4-8.2); HEMATOCRIT 34.4 % (37.0-47.0); HEMOGLOBIN 11.1 gm/dL (12.0-15.0); LYMPHOCYTES 3.7 % (24.0-44.0); MCHC 32.2 g/dL (28.0-37.0); MCV 89.9 fL (80.0-100.0); MONOCYTES 1.9 % (1.0-8.0); PLATELET COUNT 204 thou/uL (150-400); POLYS 94.4 % (36.0-66.0); RBC 3.83 mil/uL (4.20-5.00); RDW 13.3 % (10.5-14.5); WBC 14.4 thou/uL (4.0-11.0)
[2017-11-18 05:57] LABS: ALBUMIN 3.3 g/dL (3.4-5.0); CREATININE 2.8 mg/dL (0.6-1.0); POTASSIUM 4.1 mmol/L (3.5-5.1); TROPONIN-I 0.21 ng/mL (<0.06)
[2017-11-18 07:23] VITALS: BP 114/54
[2017-11-18 11:45] VITALS: BP 119/59
[2017-11-18 16:30] VITALS: BP 145/78
[2017-11-18 20:45] VITALS: BP 137/74
[2017-11-19 03:30] VITALS: BP 147/86
[2017-11-19 06:15] LABS: ALBUMIN 3.5 g/dL (3.4-5.0); CALCIUM 9.2 mg/dL (8.5-10.1); CREATININE 2.4 mg/dL (0.6-1.0); PHOSPHORUS 4.9 mg/dL (2.5-4.9); POTASSIUM 4.5 mmol/L (3.5-5.1)
[2017-11-19 07:36] VITALS: BP 139/68
[2017-11-19 12:28] VITALS: BP 160/94
[2017-11-19 16:49] VITALS: BP 158/87
[2017-11-19 20:55] VITALS: BP 147/74
[2017-11-19 22:14] LABS: ADENOVIRUS Negative (Negative); INFLUENZA A Negative (Negative); INFLUENZA B Negative (Negative); METAPNEUMOVIRUS Negative (Negative); PARAINFLUENZA 1 Negative (Negative); PARAINFLUENZA 2 Negative (Negative); PARAINFLUENZA 3 Negative (Negative); RHINOVIRUS Negative (Negative); RSV A Negative (Negative); RSV B Negative (Negative)
[2017-11-20] VITALS (20 sets, daily range): BP systolic 138–210; BP diastolic 75–129
[2017-11-20 07:07] LABS: ALBUMIN 3.4 g/dL (3.4-5.0); CALCIUM 8.7 mg/dL (8.5-10.1); CREATININE 2.4 mg/dL (0.6-1.0); PHOSPHORUS 4.9 mg/dL (2.5-4.9); POTASSIUM 4.4 mmol/L (3.5-5.1)
[2017-11-20 17:18] LABS: BE(vivo) -7.6 mmol/L (-2 to +3); HCO3 19.2 mmol/L (22.0-26.0); PCO2 43.8 mmHg (35.0-45.0); PO2 80.3 mmHg (80.0-100.0); sO2 94.2 % (92.0-98.0)
[2017-11-20 19:37] LABS: HEMATOCRIT 40.9 % (37.0-47.0); HEMOGLOBIN 12.7 gm/dL (12.0-15.0); MCH 28.8 pg (26.0-34.0); MCHC 31.1 g/dL (28.0-37.0); MCV 92.5 fL (80.0-100.0); RBC 4.42 mil/uL (4.20-5.00); RDW 13.5 % (10.5-14.5); WBC 13.6 thou/uL (4.0-11.0)
[2017-11-20 19:45] LABS: CALCIUM 8.9 mg/dL (8.5-10.1); CREATININE 2.5 mg/dL (0.6-1.0); POTASSIUM 4.5 mmol/L (3.5-5.1)
[2017-11-20 19:50] LABS: ALBUMIN 3.7 g/dL (3.4-5.0); PHOSPHORUS 6.7 mg/dL (2.5-4.9)
[2017-11-20 20:38] LABS: PROTIME 10.7 Seconds (9.3-11.4)
[2017-11-20 20:46] LABS: BE(vivo) -6.6 mmol/L (-2 to +3); HCO3 21.3 mmol/L (22.0-26.0); PCO2 52.1 mmHg (35.0-45.0); PO2 144.1 mmHg (80.0-100.0); sO2 98.4 % (92.0-98.0)
[2017-11-20 20:47] LABS: pH 7.229 (7.360-7.450)
[2017-11-21] VITALS (47 sets, daily range): BP systolic 70–184; BP diastolic 37–113
[2017-11-21 04:18] LABS: ALBUMIN 3.4 g/dL (3.4-5.0); CALCIUM 8.8 mg/dL (8.5-10.1); CREATININE 2.5 mg/dL (0.6-1.0); PHOSPHORUS 4.9 mg/dL (2.5-4.9); POTASSIUM 4.2 mmol/L (3.5-5.1)
[2017-11-21 05:23] LABS: BE(vivo) -2.1 mmol/L (-2 to +3); HCO3 22.9 mmol/L (22.0-26.0); PCO2 40.1 mmHg (35.0-45.0); PO2 140.2 mmHg (80.0-100.0); pH 7.375 (7.360-7.450); sO2 98.7 % (92.0-98.0)
[2017-11-21 09:13] LABS: PROT/CREAT RATIO 0.6; URINE CREATININE-RANDOM* 62.7 mg/dL; URINE PROTEIN-RANDOM* 34.9 mg/dL (<11.9)
[2017-11-22 04:24] LABS: HEMATOCRIT 33.4 % (37.0-47.0); MCH 29.5 pg (26.0-34.0); MCV 89.5 fL (80.0-100.0); RBC 3.73 mil/uL (4.20-5.00); RDW 12.6 % (10.5-14.5); WBC 8.8 thou/uL (4.0-11.0)
[2017-11-22 04:44] LABS: CALCIUM 8.5 mg/dL (8.5-10.1); CREATININE 2.3 mg/dL (0.6-1.0); PHOSPHORUS 4.2 mg/dL (2.5-4.9); POTASSIUM 3.6 mmol/L (3.5-5.1)
[2017-11-22 04:54] VITALS: BP 128/41
[2017-11-22 07:55] VITALS: BP 131/59
[2017-11-22 11:10] VITALS: BP 132/68
[2017-11-22 15:40] VITALS: BP 153/68
[2017-11-22 20:38] VITALS: BP 150/63
[2017-11-23 03:20] VITALS: BP 135/71
[2017-11-23 04:36] LABS: ALBUMIN 2.9 g/dL (3.4-5.0); CALCIUM 8.6 mg/dL (8.5-10.1); CREATININE 2.3 mg/dL (0.6-1.0); PHOSPHORUS 4.5 mg/dL (2.5-4.9); POTASSIUM 3.3 mmol/L (3.5-5.1)
[2017-11-23 08:05] VITALS: BP 148/78
[2017-11-23 11:10] VITALS: BP 134/61
[2017-11-23 15:10] VITALS: BP 156/88
[2017-11-23 20:19] VITALS: BP 148/89
[2017-11-24 04:05] VITALS: BP 151/79
[2017-11-24 04:06] LABS: ALBUMIN 3.3 g/dL (3.4-5.0); CALCIUM 8.6 mg/dL (8.5-10.1); CREATININE 2.2 mg/dL (0.6-1.0); PHOSPHORUS 4.1 mg/dL (2.5-4.9); POTASSIUM 3.9 mmol/L (3.5-5.1)
[2017-11-24 08:10] VITALS: BP 144/83
[2017-11-24 12:00] VITALS: BP 152/83
[2017-11-24 15:40] VITALS: BP 142/80
[2017-11-24 19:22] VITALS: BP 134/61
[2017-11-25 03:52] LABS: CALCIUM 8.6 mg/dL (8.5-10.1); CREATININE 2.2 mg/dL (0.6-1.0); POTASSIUM 4.2 mmol/L (3.5-5.1)
[2017-11-25 04:58] VITALS: BP 133/65
[2017-11-25 08:10] VITALS: BP 140/79
[2017-11-25 12:00] VITALS: BP 146/71
[2017-11-25 16:15] VITALS: BP 124/67
[2017-11-25] MEDS ORDERED: DUONEB 2.5-0.5 M3 ML INH (18:30)
[2017-11-25] MEDS ORDERED: ALPRAZOLAM 0.0.25 M1 PO (18:40)
[2017-11-25] MEDS ORDERED: LASIX 40 MG TAB40 M1 PO (18:40)
[2017-11-25] MEDS ORDERED: PREDNISONE 5 MG5 M1 PO (18:40)
[2017-11-25] MEDS ORDERED: DILTIAZEM 24HR180 M1 PO (18:40)
[2017-11-25] MEDS ORDERED: CLONAZEPAM 0.50.5 M1 PO (18:40)
[2017-11-25 19:04] VITALS: BP 124/67
== END 2017-11-25 19:30 | disposition home health service (06) | DRG 177 ==
LOC: ER 14:05 → 3W 15:23 → EROBS 15:23 → ICU 17:55 → 3W 11-17 17:35 → ICU 11-20 17:49 → 2N 11-21 23:30
PROVIDERS: Emergency Medicine; Hospitalist; Internal Medicine; Internal Medicine Nephrology; Internal Medicine Pulmonary Disease
PROC: 5A09357 Assistance with Respiratory Ventilation, Less than 24 Consecutive Hours, Continuous Positive Airway Pressure (ICD-10-PCS; principal; 2017-11-16)
PROC: 5A09357 Assistance with Respiratory Ventilation, Less than 24 Consecutive Hours, Continuous Positive Airway Pressure (ICD-10-PCS; 2017-11-19)
PROC: 5A09357 Assistance with Respiratory Ventilation, Less than 24 Consecutive Hours, Continuous Positive Airway Pressure (ICD-10-PCS; 2017-11-20)
PROC: 5A09357 Assistance with Respiratory Ventilation, Less than 24 Consecutive Hours, Continuous Positive Airway Pressure (ICD-10-PCS; 2017-11-21)
DX: J69.0 Pneumonitis due to inhalation of food and vomit (principal); J96.01 Acute respiratory failure with hypoxia; E43 Unspecified severe protein-calorie malnutrition; N17.9 Acute kidney failure, unspecified; J44.1 Chronic obstructive pulmonary disease with (acute) exacerbation; I13.0 Hypertensive heart and chronic kidney disease with heart failure and stage 1 through stage 4 chronic kidney disease, or unspecified chronic kidney disease; G89.29 Other chronic pain; M79.606 Pain in leg, unspecified; F32.9 Major depressive disorder, single episode, unspecified; F41.9 Anxiety disorder, unspecified; K21.9 Gastro-esophageal reflux disease without esophagitis; N18.9 Chronic kidney disease, unspecified; I50.9 Heart failure, unspecified; M54.9 Dorsalgia, unspecified; D72.1 Eosinophilia; I16.0 Hypertensive urgency; G47.62 Sleep related leg cramps; R00.0 Tachycardia, unspecified; E87.6 Hypokalemia; I27.20 Pulmonary hypertension, unspecified; Z86.73 Personal history of transient ischemic attack (TIA), and cerebral infarction without residual deficits; Z90.49 Acquired absence of other specified parts of digestive tract; Z87.11 Personal history of peptic ulcer disease; Z88.6 Allergy status to analgesic agent; Z87.891 Personal history of nicotine dependence; Z68.24 Body mass index [BMI] 24.0-24.9, adult; Z79.899 Other long term (current) drug therapy; Z82.49 Family history of ischemic heart disease and other diseases of the circulatory system
CPT/HCPCS: 10078; 10081; 10203; 10879

== ENCOUNTER 2018-10-15 19:59 | Emergency (ER) | payer OTHER ==
[~2018-10-15] VITALS: Ht 149.9 cm; Wt 54.0 kg
[~2018-10-15 19:59] MED LIST changes: +ALPRAZOLAM 0.0.25 M1 PO; +CLONAZEPAM 0.50.5 M1 PO; +DILTIAZEM 24HR180 M1 PO; +DUONEB 2.5-0.5 M3 ML INH; +GABAPENTIN 100100 MG PO; +LASIX 40 MG TAB40 M1 PO; +PREDNISONE 5 MG5 M1 PO
[2018-10-15 20:38] LABS: ABSOLUTE NEUTROPHILS 9.1 thou/uL (1.4-8.2); BASOPHILS 0.9 % (0.0-2.0); EOSINOPHILS 2.9 % (0.0-3.0); HEMOGLOBIN 14.3 gm/dL (12.0-15.0); LYMPHOCYTES 13.9 % (24.0-44.0); MCH 30.1 pg (26.0-34.0); MCHC 33.2 g/dL (28.0-37.0); MCV 90.9 fL (80.0-100.0); MONOCYTES 4.6 % (1.0-8.0); PLATELET COUNT 213 thou/uL (150-400); POLYS 77.7 % (36.0-66.0); RBC 4.73 mil/uL (4.20-5.00); RDW 14.2 % (10.5-14.5); WBC 11.7 thou/uL (4.0-11.0)
[2018-10-15 20:41] LABS: ANION GAP 11 mmol/L (7-16); BUN 24 mg/dL (7-18); CALCIUM 9.5 mg/dL (8.5-10.1); CHLORIDE 105 mmol/L (98-107); CO2 26 mmol/L (21-32); CREATININE 1.9 mg/dL (0.6-1.0); GLUCOSE 152 mg/dL (74-106); POTASSIUM 3.9 mmol/L (3.5-5.1); SODIUM 142 mmol/L (136-145)
[2018-10-15 20:50] LABS: ALBUMIN 4.3 g/dL (3.4-5.0); LIPASE 226 U/L (73-393); SGOT 14 U/L (15-37); SGPT 18 U/L (30-65); TOTAL BILIRUBIN 0.3 mg/dL (<0.1-1.0); TOTAL PROTEIN 7.9 g/dL (6.4-8.2); TROPONIN-I <0.06 ng/mL (<0.06)
[2018-10-15] MEDS ORDERED: TRAMADOL 50 MG50 MG PO ×2 (21:39→22:23)
[2018-10-15] MEDS ORDERED: VENTOLIN HFA 1818 GM INH (21:39)
[2018-10-15 22:20] LABS: URINE BILIRUBIN NEGATIVE (Negative); URINE BLOOD NEGATIVE (Negative); URINE CLARITY CLEAR; URINE COLOR YELLOW; URINE GLUCOSE-RANDOM* NEGATIVE (Negative); URINE KETONES NEGATIVE (Negative); URINE LEUKOCYTES-REFLEX NEGATIVE (Negative); URINE NITRITE-REFLEX NEGATIVE (Negative); URINE PROTEIN (DIPSTICK) NEGATIVE (Negative); URINE UROBILINOGEN 0.2 E.U./dl (0.2-1.0)
[2018-10-15] MEDS ORDERED: NAPROXEN250 MG PO (22:23)
[2018-10-15] MEDS ORDERED: ZOFRAN ODT4 MG DISSOLVE (22:23)
[2018-10-15] MEDS ORDERED: FLOMAX0.4 MG PO (22:23)
[2018-10-15 22:51] VITALS: BP 140/53
--- NOTE | 2018-10-16 16:37 | EKG ---
[address] [place] [address] ELECTROCARDIOGRAM REPORT Name: RAJ,KAVON POLLARD Room #: DEP [facility]#: [id number] ������������������ Admission: 10/15/18 ������������������ Attend Phys: Discharge: 10/15/18 ������������������ Date of : 38 Report #: [id number] ����������������������������������������������������������������� [id number] THIS REPORT FOR: //name// [facility] ED Test Date: 2018-10-15 Test Time: 20:42:21 Pat Name: KAVON ANTHONY Department: Room: Gender: F Sander Machine: WG : 1940 Requested By: Richard Nur Order Number: [id number] MD: Ced Friedman Measurements Intervals [place] Rate: 68 P: 73 OR: 147 QRS: 21 QRSD: 131 T: 122 QT: 468 QTc: 498 Interpretive Statements Sinus rhythm Probable left atrial enlargement Left bundle branch block Compared to ECG 11/20/2017 17:10:17 Sinus tachycardia no longer present Electronically Signed On 10-16-2018 16:37:12 [employer]OCK [employer]ER by Ced Friedman [email or web address] ��������������������������������������������� <ELECTRONICALLY SIGNED> ���������������������������������������� By: Ced Friedman MD ��������������������������������������������� 10/16/18 1637 41 41 Ced Friedman MD /SRAVAN
== END 2018-10-15 22:53 | disposition home or self-care (01) ==
LOC: ER 19:59
PROVIDERS: Emergency Medicine
DX: N20.1 Calculus of ureter (principal); R11.2 Nausea with vomiting, unspecified; G89.29 Other chronic pain; M54.9 Dorsalgia, unspecified; F41.9 Anxiety disorder, unspecified; F32.9 Major depressive disorder, single episode, unspecified; K21.9 Gastro-esophageal reflux disease without esophagitis; N18.9 Chronic kidney disease, unspecified; Z90.49 Acquired absence of other specified parts of digestive tract; Z88.5 Allergy status to narcotic agent

== ENCOUNTER 2019-03-09 12:16 | Inpatient (IN) | payer OTHER ==
[~2019-03-09] VITALS: Ht 162.6 cm; Wt 56.7 kg
--- NOTE | ~2019-03-09 | H ---
[facility] [address] [address] HISTORY AND PHYSICAL Name: KAVON ANTHONY Room #: 453-P ADM IN M.R.#: [id number] Admission: 03/09/19 ������������������ Attend Phys: Nate Rodriguez MD Discharge: ������������������ Date of : 38 Report #: [id number] THIS REPORT FOR: //name// CC: Nate Rodriguez DATE OF SERVICE: 03/09/2019 CHIEF COMPLAINT: Severe sternal pain. HISTORY OF PRESENT ILLNESS: The patient [place] the [place] Saturday night, she began to choke on some food. She indicated that she was having trouble swallowing and perhaps trouble breathing, some of the history is somewhat confused. Her son recognized that she was in distress and began to perform the Heimlich maneuver. She was standing and his arms were coupled together over her stomach. Initial attempts were not successful. She continued to be in distress and he was able to put his fingers down her mouth past her tongue and he could feel where food was impacted. He was unable to retrieve it. He applied the Heimlich maneuver again and assumes that his hands moved up over her breast bone when he applied force. She immediately had severe pain in her chest, gave a gasp from the pain, and the food bolus most likely passed down the esophagus at that time. She was able to breathe. A bolus did not come out her mouth. But she was in severe pain afterwards. They went to the Emergency Room at [facility] in [place], [place] where a plain sternal film showed a nondisplaced upper third sternal fracture. A CT scan was performed and it did confirm this nondisplaced fracture of the sternum. The CT scan notes that the plain radiographs gave better images. The CT scan did show at least 2 displaced rib fractures anteriorly on the right. The scan was done without contrast because of an elevated creatinine and an estimated creatinine clearance of 19. She was given hydrocodone 10/325 for pain relief, and this has been effective, lasting approximately 5 hours. Her last hydrocodone tablet was taken approximately 2 hours prior to coming to the office today. PAST MEDICAL HISTORY: Significant for anxiety, hypertension, an old stroke, COPD, chronic kidney disease stage 3, low back pain, insomnia, hyperlipidemia, depression, GERD. CODEINE has been listed as an allergy in the past. Hydrocodone was listed as causing constipation and sedation, although not a true allergy. She has had gastric ulcers in the past, history of dysphagia, kyphoplasty. On 11/16/2017, she presented to the hospital with flash rapid acute pulmonary edema and respiratory failure. It responded to diuresis. [address] [address] HISTORY AND PHYSICAL Name: KAVON ANTHONY Room #: 453-P ADM IN M.R.#: [id number] Admission: 03/09/19 ������������������ Attend Phys: Nate Rodriguez MD Discharge: ������������������ Date of : 38 Report #: [id number] Her left kidney was found to be atrophied. Control of anxiety was found to be an important cornerstone to control her blood pressure. She discussed benzodiazepine with Dr. Miguelina Alba on that admission and told Dr. Alba that she was not interested in changing her current medications. Her white blood cells were elevated at the time of that admission. A video swallow was normal except for being unable to swallow large pills. She was missing her lower partial plate and had poor dentition. Echocardiogram showed a normal left ventricular ejection fraction of 50% with mild diastolic dysfunction, moderate mitral regurgitation and enlarged left atrium and a PAP of 42. CURRENT MEDICATIONS: Pantoprazole 40 mg 1 in the morning. DuoNeb 2-4 times a day by nebulizer. Diltiazem 180 mg daily for blood pressure. Alprazolam 0.25 mg daily at bedtime. Furosemide 40 mg 1/2 tablet daily for her diastolic dysfunction. Albuterol inhaler as needed. ALLERGIES: CODEINE. REVIEW OF SYSTEMS: In my office, she was very uncomfortable, anxious and having some discomfort breathing. Her feet and lower legs were shaking constantly, she was able to slow them down when she consciously tried to relax. She did tell the nurse at the hospital that she has been losing weight for several months. Since her episode of choking and dysphagia on 03/07/2019, she has had nausea from pain medications, or has been sedated by pain medication if they were effective, or when the pain medicine wore off she was in severe pain. She has not been eating or drinking since then. FAMILY HISTORY: Noncontributory. PHYSICAL EXAMINATION: She was seen in my office with her son and her [id number]. VITAL SIGNS: Her weight was 119 pounds, 98.9 temperature, pulse is 105 and blood pressure is 110/68. GENERAL: She was alert and oriented, anxious, but was able with a lot of encouragement to calm down. Respirations ran between 28 and 32, but were quite shallow. Deep respirations caused her chest to hurt. HEENT: Normal. The oropharynx was very dry. CHEST: Breath sounds were diminished because she was not taking good deep breaths. There is exquisite tenderness over the upper sternum. There was also tenderness to palpation of the right lower ribs. ABDOMEN: Soft and nontender. EXTREMITIES: There was no pedal edema present. The patient found it very painful to get out of the wheelchair and stand up to get weighed. [facility] [address] [place] [address] HISTORY AND PHYSICAL Name: KAVON ANTHONY Room #: 453-P ADM IN M.R.#: [id number] Admission: 03/09/19 ������������������ Attend Phys: Nate Rodriguez MD Discharge: ������������������ Date of : 38 Report #: [id number] NEUROLOGIC: Although she was feeling weak and shaky, she preferred to remain standing because of the pain caused in the sternum as she changed positions going from standing to sitting. Her gait was normal. ASSESSMENT: 1. Sternal fracture, nondisplaced, part of a lifesaving maneuver. 2. Right anterior rib fractures were identified on the CT scan from the file of her Emergency Room. 3. History of weight loss over the last several months, at least 4 pounds documented in my office over the last several days. 4. Marked dehydration after her episode. 5. Atrophied left kidney. 6. History of dysphagia in the past with an episode of solid food dysphagia from 03/07/2019. 7. Hypertension. 8. Marked anxiety and depression. 9. Chronic obstructive pulmonary disease. 10. Other medical problems as mentioned in the history and physical above. PLAN: The patient is directly admitted to the hospital. Intravenous fluids for her dehydration. Information now is that her creatinine has risen to 2.5 with a BUN of 39 when compared to her office baseline values of 1.76 and a BUN of 22 -- acute kidney injury on top of chronic kidney disease stage 4. She will be given intravenous fluids, intravenous pain medication as well as oral pain medication. CT scanning to further define her lung conditions as well as status of her fractures. A plain sternal film as well, interestingly her son had a lateral image of a sternal film clearly showing the fracture on his telephone that he brought with him from the Emergency Room, and it is said that this demonstrated the fracture better than the CT scan. She wishes to be a full code blue. GI consultation regarding the dysphagia. Physical therapy and occupational therapy in case she needs to attend a SNF, and to keep her immobilized. DVT prophylaxis. ��������������������������������������������� ���������������������������������������� By: ��������������������������������������������� 1657 1746 Nate Rodriguez MD /nt
[~2019-03-09 12:16] MED LIST changes: +FLOMAX0.4 MG PO; +NAPROXEN250 MG PO; +ZOFRAN ODT4 MG DISSOLVE
[2019-03-09 13:21] VITALS: BP 155/59
[2019-03-09] MEDS ORDERED: PROTONIX40 M2 PO (13:33)
[2019-03-09 13:39] LABS: ABSOLUTE NEUTROPHILS 10.1 thou/uL (1.4-8.2); BASOPHILS 0.5 % (0.0-2.0); EOSINOPHILS 0.6 % (0.0-3.0); HEMATOCRIT 42.5 % (37.0-47.0); HEMOGLOBIN 13.6 gm/dL (12.0-15.0); LYMPHOCYTES 12.2 % (24.0-44.0); MCH 28.9 pg (26.0-34.0); MCV 90.4 fL (80.0-100.0); MONOCYTES 6.1 % (1.0-8.0); PLATELET COUNT 191 thou/uL (150-400); POLYS 80.6 % (36.0-66.0); RDW 13.7 % (10.5-14.5); WBC 12.5 thou/uL (4.0-11.0)
[2019-03-09 13:52] LABS: ALBUMIN 4.1 g/dL (3.4-5.0); CALCIUM 9.3 mg/dL (8.5-10.1); CREATININE 2.5 mg/dL (0.6-1.0); POTASSIUM 4.8 mmol/L (3.5-5.1); TOTAL BILIRUBIN 0.5 mg/dL (<0.1-1.0); TOTAL PROTEIN 7.9 g/dL (6.4-8.2)
[2019-03-09 16:54] LABS: URINE BILIRUBIN NEGATIVE (Negative); URINE BLOOD NEGATIVE (Negative); URINE CLARITY CLEAR; URINE COLOR YELLOW; URINE GLUCOSE-RANDOM* NEGATIVE (Negative); URINE KETONES NEGATIVE (Negative); URINE LEUKOCYTES TRACE (Negative); URINE NITRITE NEGATIVE (Negative); URINE PROTEIN (DIPSTICK) 1+ (Negative); URINE SPECIFIC GRAVITY 1.025 (1.005-1.035); URINE UROBILINOGEN 0.2 E.U./dl (0.2-1.0)
[2019-03-09 17:01] LABS: SQUAMOUS 4-10 Moderate /LPF (0-3)
[2019-03-09 17:02] LABS: CASTS None Seen /LPF (None Seen); CRYSTALS None Seen /LPF (None Seen); URINE RBC None Seen /HPF (0-2); URINE WBC 0-5 Rare /HPF (0-5)
[2019-03-09 18:05] VITALS: BP 152/37
--- NOTE | 2019-03-09 18:35 | NUR ---
PATIENT A DIRECT ADMIT FOR FX OF RIBS AND OSTERNAUM, PAIN MANAGED WITH MEDICATIONS, 3L NC AND BREATHING TX, PMHX COPD, ALERT X3 WITH FORGETFULNESS ANXIOUS, CT OF CHEST COMPLETED. UP WITH MINIMAL ASSISTANCE FOR PAIN AND IV FLUIDS TO COMMODE. ADMISSION HISTORY AND ASSESMENT COMPLETED. ORIENTED TO ROOM. FALL PRECAUTIONS IN PLACE. CALLS FOR HELP. CONTINUE TO MONITOR
[2019-03-09 19:29] VITALS: BP 131/47
[2019-03-10 04:03] VITALS: BP 146/64
--- NOTE | 2019-03-10 04:11 | NUR ---
ASSUMED CARE AROUND 1900. AXOX2 WITH OCCASIONAL CONFUSION. C/O SEVERE PAIN ON STERNUM. TX PER MD ORDER. WILL CONT TO MONITOR FOR ANY CHANGES IN CONDITION.
[2019-03-10 05:50] LABS: HEMATOCRIT 38.4 % (37.0-47.0); HEMOGLOBIN 12.5 gm/dL (12.0-15.0); MCH 29.6 pg (26.0-34.0); MCHC 32.5 g/dL (28.0-37.0); MCV 91.1 fL (80.0-100.0); RBC 4.22 mil/uL (4.20-5.00); RDW 13.5 % (10.5-14.5); WBC 9.1 thou/uL (4.0-11.0)
[2019-03-10 06:04] LABS: ALBUMIN 3.3 g/dL (3.4-5.0); CALCIUM 8.4 mg/dL (8.5-10.1); CREATININE 2.2 mg/dL (0.6-1.0); POTASSIUM 4.9 mmol/L (3.5-5.1); TOTAL BILIRUBIN 0.5 mg/dL (<0.1-1.0); TOTAL PROTEIN 6.7 g/dL (6.4-8.2)
[2019-03-10 07:23] VITALS: BP 127/95
--- NOTE | 2019-03-10 11:58 | NUR ---
Received awake on bed. Due medications given as prescribed. A+Ox2- alert with self and situation. On O2 at 2lpm via nasal cannula. On NPO- pt informed; for EGD today. Pt with NS IVF at R Upper arm 75cc/hr, infusing well. Pt complaining of pain, due PRN pain meds given to pt, with lidocaine patch on as well as prescribed. Pt incontinent of urine, pad changed as needed. Pt turned regularly. Assisted in ADLs. Seen by PT/OT today. Pt seen by Gastro Jet Mechanic, for EGD today; pt's daughter in law Crystal Hernandez called for verbal consent re: EGD, verified by Senior staff, consent signed with witness. Pt brought down to GI lab for procedure via bed with 2 porters. Pt's son came this PM but pt was at GI lab, update given.
[2019-03-10 15:21] VITALS: BP 180/80
--- NOTE | 2019-03-10 16:11 | NUR ---
PT ADMITTED RELATED TO BROKEN RIBS AND STERNUM. CM REVIEWED CHART AND SPOKE WITH CARE TEAM. CM MET WITH PT AT BEDSIDE THIS DAY. PT WAS IN PAIN AND CALLING OUT A BIT. CM CONFIRMED PT'S CONTACTS AND ASKED IF SHE WANTED CM TO CALL FAMILY SHE ASKED THAT CM DO SO. CM CALLED AND LEFT MESSAGES WITH PT'S SON AND DTR IN LAW. PT HAD INDICATED SHE LIVES IN A HOSUE CHART INDICATED THAT THERE ARE 10 STEPS TO ENTER AND 12 STEPS INSIDE. CM TO FOLLOW INDICATED WITH DC PLANNING.
--- NOTE | 2019-03-10 16:34 | P ---
[facility] [place] [address] [address] [address] PROCEDURE REPORT Name: KAVON ANTHONY Room #: 453-P ADM IN M.R.#: [id number] Admission: 03/09/19 ������������������ Attend Phys: Nate Rodriguez MD Discharge: ������������������ Date of : 38 Report #: [id number] THIS REPORT FOR: //name// CC: Nate Rodriguez MD INPATIENT UPPER ENDOSCOPY BRIEF HISTORY: The patient is an 78-year-old woman who recently had what sounds like food bolus obstruction in the esophagus. Heimlich was performed and she suffered sternal fracture as well as 3 rib fractures. She presents for evaluation of dysphagia and recent food bolus obstruction in the esophagus. PREOPERATIVE DIAGNOSIS: Food bolus obstruction in the esophagus. POSTOPERATIVE DIAGNOSES: 1. Mild hemorrhagic esophagitis. 2. Small hiatus hernia. 3. Diffuse gastritis. 4. Patchy bulbar duodenitis. 5. Dysphagia. MEDICATIONS: Deep sedation with propofol per Anesthesia. FINDINGS: Prior to propofol sedation, the procedure of upper endoscopy and dilation was discussed with the patient as well as potential risks and its complications. She indicates she understands and desires to proceed. DESCRIPTION OF PROCEDURE: With the patient in left lateral decubitus position, the Olympus video endoscope was inserted in the cervical esophagus under direct vision without difficulty. Examination of this organ through its entire length revealed normal esophageal mucosa in the proximal mid esophagus. However, as the scope was advanced in the distal esophagus, there was noted to be coating in the mucosa with bright red blood. This was washed away. A significant or brisk bleeding was not identified. There were punctate areas of friability with some oozing, but brisk bleeding was not noted. Discrete bleeding site such as an ulcer, mass or tear were not seen. In addition, I did not see definite ring or stricture in her esophagus. The scope was advanced and she has an intermittently seen 2 cm sliding type hiatus hernia. The mucosa and hernia was unremarkable. Scope was advanced in the stomach, which was examined on end view as well as retroflexed views. Examination of the proximal stomach on end view as well as retroflexed views revealed normal appearing mucosa. Upon retroflexion, I did not see any obvious tears at the GE junction. Examination of the distal stomach revealed a patchy linear gastritis. No ulcers or erosions were seen. However, there was a small amount of residual material in the antrum and a small amount in the cardia. This could not be aspirated away with the scope. The pylorus was unremarkable. Examination of the duodenal bulb revealed [facility] [address] [place] [address] PROCEDURE REPORT Name: KAVON ANTHONY Room #: 453-P [facility] IN [facility]#: [id number] Admission: 03/09/19 ������������������ Attend Phys: Nate Rodriguez MD Discharge: ������������������ Date of : 38 Report #: [id number] patchy bulbar duodenitis, but the mucosa was intact without ulceration. The scope was advanced into the second portion of duodenum and the mucosa was unremarkable. There is no evidence of bleeding. At that point, the scope was slowly withdrawn and careful circumferential views confirmed the above findings. The patient tolerated the procedure well. Biopsies obtained of the gastritis. Subsequently, she was carefully dilated with passage of 40-Mongolian Riley dilator. There was no resistance. The endoscope was reinserted and no further bleeding was noted. A tear was not seen. At that time, biopsies obtained of the esophageal mucosa to evaluate for esophagitis. At that point, the scope was slowly withdrawn and careful circumferential views confirmed the above findings. The patient tolerated the procedure well. DISPOSITION: The patient with recent episode of food bolus obstruction in the esophagus. No evidence of a tight ring or stricture, but she is empirically dilated based on symptoms. She did have evidence of oozing from her esophageal mucosa. The etiology is not entirely clear. Again, I do not see any specific trauma from her food bolus, which was 3 days ago. No ulcers were seen. She has been retching and this may be the source of her esophagitis. We will follow up on biopsies. Continue PPI at this point in time. Advance diet as tolerated. She is to return for dilation as needed due to recurrent symptoms of dysphagia. ��������������������������������������������� <ELECTRONICALLY SIGNED> ���������������������������������������� By: Israel Horton MD ��������������������������������������������� 03/10/19 1634 1246 1321 Israel Horton MD /nt
[2019-03-10 17:47] VITALS: BP 153/51
[2019-03-10 19:31] VITALS: BP 171/93
--- NOTE | 2019-03-11 02:05 | NUR ---
PATIENT AOX3 MAKES NEEDS KNOWN. PATIENT HAD INCREASED PAIN THIS SHIFT SCREAMING OF PAIN AROUND THE CHEST AREA<<NON CARDIAC PAIN>>. PATIENT IN BED ASLEEP AT THIS TIME NO S/S OF PAIN OR DISCOMFORT. PATIENT USES A BEDSIDE COMMODE. PATIENT CONTIENT THIS SHIFT PERICARE AND BARRIER CREAM APPLIED NEEDED. PATIENT ENCOURAGED TO COUGH AND TAKE DEEP BREATHS. PATIENT C/O SOA, CALLED RT AND REQUESTED CONTIOUS OXYGEN, OXYGEN SAT IS 98%-100% ON 3L. PATIENT IN BED ASLEEP AT THIS TIME BREATHING REGULAR AND UNLABOURED.
[2019-03-11 04:24] VITALS: BP 166/76
--- NOTE | 2019-03-11 12:12 | NUR ---
CM SPOKE WITH PT'S DTR IN LAW THIS DAY. SHE INDICATED THAT PT RESIDES WITH HER AND HER SPOUSE PT'S SON IN A HOUSE WITH 11 STEPS TO ENTER BUT PT CAN GO UP THE LAWN AND ONLY USE 3. SHE INDICATED THAT PT HAD BEEN INDEPENDENT WITH GAIT AND ADLS INTERCHANGE AGENT. CM INFORMED DTR IN LAW THAT CARE TEAM ARE RECOMMENDING SKILLED POST ACUTE CARE STAY. CM PROVIDED PT WITH LIST OF SNF FOR REVIEW. CM TO FOLLOW UP AND SEND REFERRALS PER PT'S REQUEST.
--- NOTE | 2019-03-11 13:28 | NUR ---
PT A&OX2, VSS, PAIN IN STERNUM. PATIENT PAIN MANAGED WITH MEDICATION, PAIN REMAINS UNCONTROLLED. DOCTOR HAS BEEN IN AND HAS MADE ADJUSTMENTS. PATIENT HAS ANXIETY ABOUT EATING AND ENCOURAGED TO TAKE SMALL BITES, SMALL SIPS. FALL PRECAUTIONS IN PLACE, WILL CONTINUE TO MONITOR.
[2019-03-11 13:37] VITALS: BP 163/55
[2019-03-11 13:42] LABS: HEMATOCRIT 38.5 % (37.0-47.0); HEMOGLOBIN 12.4 gm/dL (12.0-15.0); MCHC 32.1 g/dL (28.0-37.0); MCV 90.3 fL (80.0-100.0); RBC 4.26 mil/uL (4.20-5.00); RDW 13.3 % (10.5-14.5); WBC 8.5 thou/uL (4.0-11.0)
[2019-03-11 13:50] LABS: ALBUMIN 3.3 g/dL (3.4-5.0); CALCIUM 8.9 mg/dL (8.5-10.1); POTASSIUM 4.2 mmol/L (3.5-5.1); TOTAL BILIRUBIN 0.4 mg/dL (<0.1-1.0)
[2019-03-11 19:08] VITALS: BP 118/50
--- NOTE | 2019-03-12 03:13 | NUR ---
ASSUMED CARE AROUND 190. AXOX2. PERSISTENT PAIN ON STERNUM AREA. TX PER MD ORDER. NO S/S ACUTE DISTRESS NOTED OR REPORTED AT THIS TIME. WILL CONT TO MONITOR FOR ANY CHANGES IN CONDITION.
[2019-03-12 03:27] VITALS: BP 150/60
[2019-03-12 07:50] VITALS: BP 158/67
--- NOTE | 2019-03-12 13:09 | NUR ---
PATIENT NOTED TO HAVE STERNAL PAIN THIS AM SHE KEEPS POINTING TO THE STERNAL REGION WHILE CRYING. NOT EASILY CONSOLABLE. PRN PAIN MEDICATON ADMINISTERED. SHE IS CURRENTLY SLEEPING. PATIENT IS USUALLY IN TOW STATES. SHE IS EITHER AWAKE AND CRYING OR SHE IS SLEEPING. DIFFICULT ASSESS PAIN WHEN SHE WILL NOT STOP CRYING TO TELL THE NURSE HER PAIN LEVEL. EVEN WHEN SHE AWAKENED FROM SLEEP, SHE IMMEDIATEL STARTS CRYING. WILL KEEP PAIN MEDICATION NEED TO MINIMIZE PAIN. SHE IS BED REST BUT DOES GET UP TO THE TOILET WITH ASSIST. WILL CONT WITH PLAN OF CARE.
--- NOTE | 2019-03-12 15:42 | NUR ---
CM FOLLOWED UP WITH PT'S SON TODAY AND HE INDICATED THAT THEY ARE LOOKING INTO FACILITIES IN [place] THEY LIVE NEAR THERE. [facility], [facility], [facility], AND [facility]. THEY MENTIONED [facility] BUT THEY DON'T TAKE ADVANTRA, CM CALLED TO LET HIM KNOW THAT. CM TO FOLLOW INDICATED WITH DC PLANNING.
--- NOTE | 2019-03-12 16:06 | PATH ---
[facility] [address] [place] [address] PATHOLOGY RPT PROCEDURE Name: KAVON JORDAN Room #: 453-P ADM IN M.R.#: [id number] ������������������ Admission: 03/09/19 ������������������ Date of : 38 Discharge: Report #: [id number] Path Case #: [id number] [facility] Accession Number: [id number] . 01 Material submitted: . PART A: stomach - GASTRITIS PART B: esophagus - ESOPHAGUS . 01 Clinical history: . Pre-OP DX: Dysphagia Post-OP DX: Gastritis, hemorrhagic esophagitis, dysphagia, retained food in stomach . 02 Diagnosis: A. Gastric mucosa, gastritis, rule out H. pylori, endoscopic biopsy: - Mild chronic active gastritis with features of reactive gastropathy. - Negative for intestinal metaplasia or atrophy. - Negative for Helicobacter pylori (properly controlled immunohistochemical stain performed). . B. Squamous mucosa, esophagus, endoscopic biopsy: - Moderate acute esophagitis with focal ulceration, clinically hemorrhagic. - Negative for intestinal metaplasia or dysplasia. (IUV:pit; 03/11/2019) QTP/03/11/2019 . 02 Comment: A properly controlled GMS fungal special is performed on block B1 due to the presence of focal ulceration as well as active esophagitis. The results of this stain will be reported on an addendum to follow. . (IUV:pit; 03/11/2019) . 02 Addendum: . This is an addendum issued subsequent to reviewing a properly controlled GMS fungus special stain. It shows rare fungal hyphal and yeast elements present within the esophageal tissue. These findings are suggestive of [place] contributing to the moderate acute esophagitis with ulceration. (IUV:pit; 03/12/2019) . . Professional services performed by [facility] at [facility], [address] [place] [address] , [place] [address]. Technical services performed by [facility] at [address] [place] [address], [address], [place] [address]. S/03/12/2019 Addendum Electronically Signed by Robyn Chavez MD, Pathologist [address] [address] PATHOLOGY RPT PROCEDURE Name: KAVON JORDAN Room #: 453-P [facility] IN M.R.#: [id number] ������������������ Admission: 03/09/19 ������������������ Date of : 38 Discharge: Report #: [id number] Path Case #: [id number] . 02 Electronically signed: . Robyn Chavez MD, Pathologist NPI- [id number] . 01 Gross description: . A. Received in formalin labeled "Kavon Jordan, BX gastritis, rule out H. pylori," are 4 segments of robles soft tissue measuring 1.1 x 0.9 x 0.3 cm in aggregate dimensions and ranging from 0.3 to 0.5 cm in maximum dimension. The specimen is submitted entirely in cassette A1. . B. Received in formalin labeled "Nikki, Kavon, BX esophagus," are multiple segments of robles soft tissue measuring 0.6 x 0.2 x 0.1 cm in aggregate dimensions. The specimen is filtered and entirely submitted in cassette B1. (TSD; 03/10/2019) TOB/TOB . 02 Pathologist provided ICD-10: K29.50, K31.9, K20.9, K22.10 . 02 CPT . 439563, 084816, [id number], 303257 Specimen Comment: A courtesy copy of this report has been sent to Specimen Comment: [phone], . Specimen Comment: Report sent to DR SALAZAR / DR BANG Performed at: [address] [facility], [place], [place] [address] MD Lawrence Fairbanks MD Phone: [phone] Performed at: [address] [facility] [id number] MD Robyn Chavez MD Phone: [phone]
[2019-03-12 17:11] VITALS: BP 173/69
[2019-03-12 20:27] VITALS: BP 141/57
--- NOTE | 2019-03-13 03:18 | NUR ---
PATIENT AOX2 CONFUSED AND FORGETFUL.PATIENT WAS MOURNING IN PAIN AT AROUND 1999. PAIN MEDS GIVEN PER DR. ORDER.PAIN CONTROLLED THIS SHIFT. PATIENT HAD HIGH ANXIETY THIS SHIFT. PRN XANAX GIVEN PER DR. ORDER. PATIENT WAS INCONTINENT THIS SHIFT, PERICARE AND BARRIER CREAM APPLIED NEEDED.PATIENT ENCOURAGED FLUIDS AND SUPPLEMENT. PATIENT EDUCATED ON TAKING DEEP BREATHS AND COUGHING. PATIENT IN BED ASLEEP AT THIS TIME BREATHING REGULAR AND UNLABOURED.
[2019-03-13 06:20] VITALS: BP 148/59
--- NOTE | 2019-03-13 10:16 | NUR ---
DISCHARGE PLANNING. PATIENT IS READY FOR DISCHARGE TODAY. POST ACUTE RECOMMENDED AT DISCHARGE. REFERRALS FAXED TO [facility] AND [facility] FOR PLACEMENT NEEDS. AWAITING RESPONSE. FOLLOWING TO ASSIST.
[2019-03-13 15:17] VITALS: BP 175/66
--- NOTE | 2019-03-13 15:52 | NUR ---
WE ARE AWAITING AUTH FOR [facility]. SHOULD AUTH BE RECEIVED OVER THE WEEKEND CONTACT PHONE: FAX: [phone]. CHART COPY ORDERED. CM TO FOLLOW INDICATED WITH DC PLANNING.
[2019-03-13 19:33] VITALS: BP 167/56
--- NOTE | 2019-03-13 20:59 | NUR ---
PATIENT ALERT AND OREIENTED TO SELF AND LOCATION. PATIENT ABLE TO SIT UP IN CHAIR MOST OF THE DAY AND WALK A SHORT DISTANCE FROM BED TO CHAIR. PATIENT CONTINUES TO HAVE PAIN BUT SEEMS TO BE MANAGING IT BETTER TODAY. PATIENT PREFERS IV MEDS SINCE SHE HAS EXTREME DIFFICULTING SWALLOWING PILLS EVEN WITH APPLESAUCE. PATIENT NEEDS ENCOURAGEMENT TO EAT AND DRINK AND IS A POOR EATER. SON AT BEDSIDE THIS EVENING AND BROUGHT FOOD IN TO EAT SINCE PATIENT HAVING DIFFICULTING EATING HAMBURGER.
[2019-03-14 03:10] VITALS: BP 180/73
--- NOTE | 2019-03-14 04:47 | NUR ---
Pt. rested quietly at short intervals during the night when checked on during frequent rounds. Pt. moaning outloud in pain at intervals during the shift. She was medicated with pain meds (see emar) for sternum pain with no relief to some relief noted. No noted shortness of air. Up to the bedside comode with assistance of one. Bed alarm is on.
[2019-03-14 06:02] LABS: HEMATOCRIT 37.2 % (37.0-47.0); HEMOGLOBIN 11.9 gm/dL (12.0-15.0); MCH 29.1 pg (26.0-34.0); MCHC 32.1 g/dL (28.0-37.0); MCV 90.7 fL (80.0-100.0); RBC 4.11 mil/uL (4.20-5.00); RDW 13.4 % (10.5-14.5); WBC 9.4 thou/uL (4.0-11.0)
[2019-03-14 06:22] LABS: CALCIUM 9.5 mg/dL (8.5-10.1); CREATININE 1.7 mg/dL (0.6-1.0); POTASSIUM 4.2 mmol/L (3.5-5.1)
[2019-03-14 08:44] VITALS: BP 173/57
[2019-03-14 15:00] VITALS: BP 190/75
--- NOTE | 2019-03-14 17:16 | NUR ---
PT A&OX4, VSS, PAIN IN STERNUM. PAIN MANAGED WITH MEDICATION. PATIENT HAS SAT IN RECLINER MOST OF DAY, FAMILY AT BEDSIDE. PATIENTS BREATHING IS REG AND SATS WITHIN NORMAL LIMITS, PT DOESNT FEEL SOA. WILL CONTINUE TO MONITOR.
[2019-03-14 20:15] VITALS: BP 173/66
--- NOTE | 2019-03-15 03:43 | NUR ---
ASSUMED CARE AROUND 1900. AXOX2. PERSISTENT IN ON STURNUM. TX PER MD ORDER. IN CONTINENCE NOTED. NO S/S ACUTE DISTRESS NOTED OR REPORTED AT THIS TIME. WILL CONT TO MONITOR FOR ANY CHANGES IN CONDITION.
[2019-03-15 08:04] VITALS: BP 181/85
--- NOTE | 2019-03-15 14:43 | NUR ---
TOWARDS POC PT A/O X4, FORGETFUL, VSS, AFEBRILE. PAIN MANAGED BY MEDS. NO CONCERNS VOICED. WILL CONTINUE TO MONITOR.
[2019-03-15 15:36] VITALS: BP 156/58
[2019-03-15 19:57] VITALS: BP 175/64
--- NOTE | 2019-03-16 04:26 | NUR ---
ASSUMED CARE AROND 1900. AXOX2. PERSISENT RESTLESSNESS AND PAIN. TX PER MD ORDER. NO S/S ACUTE DISTRESS NOTED OR REPORTED AT THIS TIME. WILL CONT TO MONITOR FOR ANY CHANGES IN CONDITION.
[2019-03-16 06:19] LABS: HEMATOCRIT 39.2 % (37.0-47.0); HEMOGLOBIN 12.6 gm/dL (12.0-15.0); MCH 28.9 pg (26.0-34.0); MCHC 32.1 g/dL (28.0-37.0); MCV 90.2 fL (80.0-100.0); RBC 4.35 mil/uL (4.20-5.00); RDW 13.5 % (10.5-14.5); WBC 10.3 thou/uL (4.0-11.0)
[2019-03-16 06:27] LABS: CALCIUM 9.5 mg/dL (8.5-10.1); CREATININE 1.6 mg/dL (0.6-1.0); POTASSIUM 3.6 mmol/L (3.5-5.1)
[2019-03-16 08:00] VITALS: BP 151/64
--- NOTE | 2019-03-16 12:23 | NUR ---
discharge planning: dp sent ot, pt and progress notes to [facility] fax [phone].
[2019-03-16 15:00] VITALS: BP 170/54
--- NOTE | 2019-03-16 16:07 | NUR ---
UPDATED PT, OT, AND PROG NOTE SENT TO [facility] TO SUBMIT FOR INSURANCE AUTH. CM TO FOLLOW INDICATED WITH DC PLANNING.
--- NOTE | 2019-03-16 19:52 | NUR ---
Assumed pt care this am, would stay on her recliner for meals and would ambulate from the bed / chair to the toilet. Pain managed with medication, partial relief has been noted, pain is aggrivated by coughing and deep breathing. VS has been stable, supplements are well tolerated. POC followed. CM woring on requiremetns for placement, family is informed.
[2019-03-16 19:55] VITALS: BP 149/57
[2019-03-17 05:56] LABS: HEMATOCRIT 34.3 % (37.0-47.0); HEMOGLOBIN 11.3 gm/dL (12.0-15.0); MCH 29.5 pg (26.0-34.0); MCHC 32.8 g/dL (28.0-37.0); MCV 89.9 fL (80.0-100.0); RBC 3.82 mil/uL (4.20-5.00); RDW 13.8 % (10.5-14.5); WBC 7.2 thou/uL (4.0-11.0)
[2019-03-17 05:59] LABS: CALCIUM 8.9 mg/dL (8.5-10.1); CREATININE 1.6 mg/dL (0.6-1.0); MAGNESIUM 1.9 mg/dL (1.8-2.4); POTASSIUM 3.6 mmol/L (3.5-5.1)
[2019-03-17 07:20] VITALS: BP 136/52
--- NOTE | 2019-03-17 07:49 | NUR ---
ASSUMED CARE AROUND 1900. AXOX2. PERSISTENT PAIN ON STRNUM. AGITATION AND RESTLESS NOTED WITH THRASHING. TX PER MD ORDER. NO S/S ACUTE DISTRESS NOTED OR REPORTED NOTED AT THIS TIME. CARE TRANSFERRED TO DAY RN AT THIS TIME.
[2019-03-17 07:55] VITALS: BP 136/52
[2019-03-17] MEDS ORDERED: ENOXAPARIN30 MG/0.1 SUBQ (12:37)
[2019-03-17] MEDS ORDERED: COZAAR 50 MG TA50 MG PO (12:38)
[2019-03-17] MEDS ORDERED: VOLTAREN GEL 1100 G2 TOP (12:39)
[2019-03-17] MEDS ORDERED: DURAGESIC1 EAC4 TRANSDERM (12:41)
[2019-03-17] MEDS ORDERED: PERCOCET 5-3251 EACH PO (12:43)
[2019-03-17] MEDS ORDERED: PERCOCET 7.5-31 EACH PO (12:45)
[2019-03-17] MEDS ORDERED: AUGMENTIN 500-1 EACH PO (12:46)
[2019-03-17] MEDS ORDERED: ALPRAZOLAM 0.0.25 MG PO (12:48)
[2019-03-17] MEDS ORDERED: COLACE 100 MG100 MG PO (12:48)
[2019-03-17] MEDS ORDERED: CARAFATE 1 GM TA1 GM PO (12:49)
[2019-03-17] MEDS ORDERED: PANTOPRAZOLE SO40 M1 PO (12:50)
--- NOTE | 2019-03-17 12:53 | NUR ---
PT IS TO DISCHARGE TO [facility] THIS DAY. PT IS TO DC AT 1400 [facility]IA [facility]. PT AND SON ARE AWARE AND AGREEABLE. CHART COPY MADE. ORDERS TO BE FAXED. REPORT TO BE CALLED TO . NO OTHER CM INTERVENTION INDICATED. CASE CLOSED.
--- NOTE | 2019-03-17 14:37 | NUR ---
ASSUMED CARE OF PATIENT AT 0715, PATIENT ALERT X [address] PATIENT UP WITH MAX ASSIST X 1-2 WITH WALKER AND VERBAL CUES. PATIENT C/O PAIN WITH CHEST AREA/NON CARDIAC, RECEIVED FENTANYL 50 MCG X 1 AND OXYCODONE 1 TABLET PRIOR TO DISCHARGE. PATIENT HAD RIGHT FOREARM IV IN PLACE, REMOVED PRIOR TO DISCHARGE. PATIENT HAS O2 AT 2 LITERS/NC IN PLACE, SATS 96% THIS AM, NO S/S OF SOB. PATIENT HAS POOR APPETITE, ENCOURAGED TO EAT, REFUSED ENSURE PUDDING SUPPLEMENTS. SON ARRIVED TO BRING CLOTHING FOR DISCHARGE TO FACILITY THIS AFTERNOON. ALL PERSONAL BELONGINGS AND ALL DISCHARGE PAPERWORK SENT WITH THE PATIENT. REPORT GIVEN TO LAILA/MARINE AT THE FACILITY. TRANSPORT ARRIVED, PATIENT ASSISTED TO THE WHEELCHAIR.
== END 2019-03-17 15:06 | DRG 564 ==
LOC: 4W 12:16
PROVIDERS: Internal Medicine; ADMIT Internal Medicine
PROC: 0D758ZZ Dilation of Esophagus, Via Natural or Artificial Opening Endoscopic (ICD-10-PCS; principal; 2019-03-10)
PROC: 0DB58ZX Excision of Esophagus, Via Natural or Artificial Opening Endoscopic, Diagnostic (ICD-10-PCS; 2019-03-10)
PROC: 0DB68ZX Excision of Stomach, Via Natural or Artificial Opening Endoscopic, Diagnostic (ICD-10-PCS; 2019-03-10)
DX: S22.20XA Unspecified fracture of sternum, initial encounter for closed fracture (principal); J18.9 Pneumonia, unspecified organism; S22.41XA Multiple fractures of ribs, right side, initial encounter for closed fracture; J44.1 Chronic obstructive pulmonary disease with (acute) exacerbation; N17.9 Acute kidney failure, unspecified; N18.4 Chronic kidney disease, stage 4 (severe); J98.11 Atelectasis; J44.0 Chronic obstructive pulmonary disease with (acute) lower respiratory infection; T17.820A Food in other parts of respiratory tract causing asphyxiation, initial encounter; K22.8 Other specified diseases of esophagus; F41.9 Anxiety disorder, unspecified; Z86.73 Personal history of transient ischemic attack (TIA), and cerebral infarction without residual deficits; F32.9 Major depressive disorder, single episode, unspecified; G47.00 Insomnia, unspecified; E78.5 Hyperlipidemia, unspecified; K21.9 Gastro-esophageal reflux disease without esophagitis; E86.0 Dehydration; K20.9 Esophagitis, unspecified; K44.9 Diaphragmatic hernia without obstruction or gangrene; K29.70 Gastritis, unspecified, without bleeding; D72.829 Elevated white blood cell count, unspecified; E86.1 Hypovolemia; I12.9 Hypertensive chronic kidney disease with stage 1 through stage 4 chronic kidney disease, or unspecified chronic kidney disease; K29.80 Duodenitis without bleeding; R13.10 Dysphagia, unspecified; T18.128A Food in esophagus causing other injury, initial encounter; Z88.6 Allergy status to analgesic agent; Z79.899 Other long term (current) drug therapy; Z87.11 Personal history of peptic ulcer disease; Z90.49 Acquired absence of other specified parts of digestive tract; Z82.49 Family history of ischemic heart disease and other diseases of the circulatory system; X58.XXXA Exposure to other specified factors, initial encounter; Y93.89 Activity, other specified; Y92.89 Other specified places as the place of occurrence of the external cause; Y99.8 Other external cause status
CPT/HCPCS: 10047; 62110; 62900; 70005

== ENCOUNTER → 2019-09-14 | Outpatient (CLI) | payer OTHER ==
[~2019-09-14] MED LIST changes: +ALPRAZOLAM 0.0.25 MG PO; +AUGMENTIN 500-1 EACH PO; +CARAFATE 1 GM TA1 GM PO; +COLACE 100 MG100 MG PO; +COZAAR 50 MG TA50 MG PO; +DURAGESIC1 EAC4 TRANSDERM; +ENOXAPARIN30 MG/0.1 SUBQ; +PANTOPRAZOLE SO40 M1 PO; +PERCOCET 5-3251 EACH PO; +PERCOCET 7.5-31 EACH PO; +VOLTAREN GEL 1100 G2 TOP
--- NOTE | 2019-09-14 15:04 | EKG ---
[place] [address] [facility] [employer] [place] [address] ELECTROCARDIOGRAM REPORT Name: KAVON ANTHONY [id number]: 09/14/19 Attend Phys: Nate Rodriguez MD Discharge: Date of : 36 Report #: [id number] THIS REPORT FOR: //name// [facility] Test Date: 2019-09-14 Test Time: 14:20:33 Pat Name: KAVON ANTHONY Department: Room: Gender: F Lease Purchase Driver: CONNOR, : 1940 Requested By: Nate Rodriguez Order Number: [id number] MD: Ced Friedman Measurements Intervals [place] Rate: 91 P: 79 MT: 126 QRS: 44 QRSD: 126 T: 105 QT: 403 QTc: 496 Interpretive Statements Sinus rhythm Left bundle branch block Compared to ECG 10/15/2018 20:42:21 No significant changes Electronically Signed On 09-14-2019 15:03:56 SENIOR CORPORATE ACCOUNTANT by Ced Friedman [email or web address] <ELECTRONICALLY SIGNED> By: Ced Friedman MD 09/14/19 1503 19 19 Ced Friedman MD /SRAVAN
== END ==
LOC: RAD 13:17
DX: J44.9 Chronic obstructive pulmonary disease, unspecified (principal); I44.7 Left bundle-branch block, unspecified

== ENCOUNTER 2019-11-22 20:02 | Emergency (ER) | payer MEDICARE ==
[~2019-11-22] VITALS: Ht 152.4 cm; Wt 52.2 kg
[2019-11-22 20:51] LABS: URINE BILIRUBIN NEGATIVE (Negative); URINE BLOOD NEGATIVE (Negative); URINE CLARITY CLEAR; URINE COLOR YELLOW; URINE GLUCOSE-RANDOM* NEGATIVE (Negative); URINE KETONES NEGATIVE (Negative); URINE NITRITE-REFLEX NEGATIVE (Negative); URINE PROTEIN (DIPSTICK) NEGATIVE (Negative); URINE UROBILINOGEN 0.2 E.U./dl (0.2-1.0)
[2019-11-22 20:52] LABS: URINE LEUKOCYTES-REFLEX 1+ (Negative)
[2019-11-22 20:57] LABS: BACTERIA-REFLEX None Seen /HPF (None Seen); CASTS None Seen /LPF (None Seen); CRYSTALS None Seen /LPF (None Seen); MUCUS None Seen strn/LPF (None Seen); SQUAMOUS None Seen /LPF (0-3); URINE RBC None Seen /HPF (0-2); URINE WBC-REFLEX 0-5 Rare /HPF (0-5)
[2019-11-22] MEDS ORDERED: PERCOCET 5-3251 EACH PO (21:43)
[2019-11-22 22:09] VITALS: BP 130/67
== END 2019-11-22 22:15 | disposition home or self-care (01) ==
LOC: ER 20:02
PROVIDERS: Emergency Medicine
DX: S22.080A Wedge compression fracture of T11-T12 vertebra, initial encounter for closed fracture (principal); K21.9 Gastro-esophageal reflux disease without esophagitis; N18.9 Chronic kidney disease, unspecified; M81.0 Age-related osteoporosis without current pathological fracture; Z87.11 Personal history of peptic ulcer disease; Z86.73 Personal history of transient ischemic attack (TIA), and cerebral infarction without residual deficits; X58.XXXA Exposure to other specified factors, initial encounter; Y93.89 Activity, other specified; Y92.89 Other specified places as the place of occurrence of the external cause; Y99.8 Other external cause status